=== PATIENT | female | born 1940 | race Caucasian/White ===

== ENCOUNTER 2017-10-11 06:48 | Inpatient (IN) ==
[2017-10-11] MEDS ORDERED: CeFAZolin Syr 2,000MG/20 ML 2,000 MG/20 ML SYRINGE IVPB ONE (07:06)
[2017-10-11] MEDS ORDERED: Plasma-Lyte A (PH 7.4) 1,000 ML IVC SCH (07:15)
[2017-10-11] MEDS ORDERED: Ethanol\\Acetic Acid\\Na Ace\\Ben 1,000 ML IRRIG.SOLN IR ONE (07:16)
[2017-10-11] MEDS ORDERED: Lidocaine -MPF 2% 2 ML VIAL ONE (07:24)
[2017-10-11] MEDS ORDERED: *HR* Succinylcholine 200 MG/10 ML VIAL IVP ONE (07:24)
[2017-10-11] MEDS ORDERED: *HR* Phenylephrine 10 MG/ML VIAL ONE (07:24)
--- NOTE | 2017-10-11 07:24 | History & Physical Report ---
Date of Encounter: 10/11/17 Time of Encounter: 07:24 24 Hour HP Update - Instructions Instructions: If the History and Physical is less than 30 days old and was completed prior to A.M. admission and or procedure and has NOT been updated on calendar day of procedure please complete this update prior to performing procedure. - Update Patient reports changes in Medical Condition: No Changes in examination, assessment, or condition: No Changes in Medication: No Preop tests/diagnostics Reviewed: Yes Surgery Remains Indicated: Yes Consent for Planned Operative Procedure(s) Verified: Yes - Pre-Operative Checklist Preoperative Checklist Indicated: No Prophylactic Antibiotic Ordered: Yes Is VTE Prophylaxis Indicated?: Yes
[2017-10-11] MEDS ORDERED: *HR* Propofol 200 MG/20 ML VIAL IVP ONE (07:26)
[2017-10-11] MEDS ORDERED: *HR* FentaNYL (PF) 100 MCG/2 ML VIAL ONE ×2 (07:27→10:31)
--- NOTE | 2017-10-11 07:37 | Anesthesia Evaluation PreOp ---
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 History: Denies Any Significant HX Other Medical History: Denies Any Significant HX Anesthesia History: No Prior Anesthetic Complications, Past Anesthesia (R total hip) Alcohol Use: occasionally Drug use: none Medications and Allergies Cholecalciferol (D-3) [Vitamin D] 1,000 unit PO DAILY 10/11/17 [History] Diclofenac Sodium [Voltaren] 50 mg PO BID 10/11/17 [History] Fluticasone Propionate Nasal [Flonase] 50 mcg NS 10/11/17 [History] Lisinopril-HCTZ 20-12.5 [Prinzide 20-12.5] 1 each PO 10/11/17 [History] Melatonin 1 mg PO 10/11/17 [History] Ubidecarenone [Coq10] 100 mg PO 10/11/17 [History] Vit A/Vit C/Vit E/Zinc/Copper [Preservision Areds Tablet] 1 each PO 10/11/17 [ History] 3 Allergy/AdvReac Type Severity Reaction Status Date / Time Dorzolamide [From Cosopt] Allergy See Verified 09/30/17 15:00 Comments Erythromycin Base Allergy See Verified 09/30/17 15:00 Comments timolol [From Cosopt] Allergy See Verified 09/30/17 15:00 Comments tramadol Allergy Hallucinati Verified 09/30/17 15:00 ng - Meds/Allergy Pre-op Review Medications Reviewed: Yes Allergies Reviewed: Yes Beta Blockers on Current Med List: No Anesthesia Results - Labs Laboratory Tests 09/30/17 09/30/17 09/30/17 14:07 14:07 14:07 WBC 8.0 Hgb 12.8 Hct 38.7 Plt Count 237 PT 10.9 INR 1.0 APTT 29.7 Sodium 136 Potassium Chloride 103 Carbon Dioxide 23 BUN 27 H Creatinine 0.89 10/02/17 13:44 WBC Hgb Hct Plt Count PT INR APTT Sodium Potassium 4.8 H Chloride Carbon Dioxide BUN Creatinine - Imaging EKG: report reviewed (NSR) Anesthesia Exam O2 Sat Height 1.55 m Height 1.55 m Weight 78.471 kg Weight 78.471 kg O2 Sat by Pulse Oximetry 98 Vital Signs Temp Pulse Resp BP Pulse Ox 98.2 F 83 18 152/70 98 10/11/17 07:13 10/11/17 07:13 10/11/17 07:13 10/11/17 07:13 10/11/17 07:13 Height: 1.55m Weight: 78kg NPO (# of Hours): >8 - HEENT Pupil (Motor): Pupils equal, EOMI Mallampati: II Teeth: Normal Oral Opening: Greater than 3 - DOUBLE NEEDLE OPERATOR LOCKSTITCH LOC: Oriented DOUBLE NEEDLE OPERATOR LOCKSTITCH Motor: Normal RUE, Normal LUE, Normal RLE, Normal LLE, Normal Face DOUBLE NEEDLE OPERATOR LOCKSTITCH Sensory: Normal: RUE, LUE, RLE, LLE, Face - Cardiac Rhythm: Regular - Pulmonary Breath Sounds: bilateral Clear Respiratory Effort: Symmetrical Anesthesia Assess/Plan ASA Score: 2 Modified Hartland Scale for Level of Consciousness: Cooperative, oriented, and tranquil Anesthetic Plan: General (r/b/a discussed, questions answered, consent obtained) Monitoring Plan: Standard Monitors Recovery Plan: PACU
--- NOTE | 2017-10-11 07:45 | Discharge Summary ---
Date of Encounter: 10/13/17 Time of Encounter: 06:47 - Discharge Diagnosis (1) Hypertension Priority: Secondary Status: Chronic Qualifiers: Hypertension type: unspecified Qualified Code(s): I10 - Essential (primary ) hypertension (2) Hyperlipidemia Priority: Secondary Status: Chronic Qualifiers: Hyperlipidemia type: unspecified Qualified Code(s): E78.5 - Hyperlipidemia , unspecified (3) Obesity (BMI 30.0-34.9) Priority: Secondary Status: Chronic (4) Arthritis of left hip Priority: Primary Status: Chronic (5) Status post total hip replacement, left Priority: Primary Status: Acute (6) Acute blood loss anemia Priority: Primary Status: Acute - Discharge Medications Home Medications: Aspirin Enteric Coated [Aspirin EC] 325 mg PO BID #20 tablet. 10/11/17 [Rx] Cholecalciferol (D-3) [Vitamin D] 1,000 unit PO DAILY 10/11/17 [History] Diclofenac Sodium [Voltaren] 50 mg PO BID 10/11/17 [History] Fluticasone Propionate Nasal [Flonase] 50 mcg NS DAILY 10/11/17 [History] Lisinopril-HCTZ 20-12.5 [Prinzide 20-12.5] 1 each PO DAILY 10/11/17 [History] Melatonin 1 mg PO DAILY 10/11/17 [History] OxyCODONE Immed Rel [Roxicodone 5 MG] 5 mg PO Q4HR PRN #24 tablet 10/11/17 [Rx] Ubidecarenone [Coq10] 100 mg PO DAILY 10/11/17 [History] Vit A/Vit C/Vit E/Zinc/Copper [Preservision Areds Tablet] 1 each PO DAILY [History] Latanoprost [Xalatan] 1 drop OP HS 10/12/17 [History] Allergies/Adverse Reactions: 3 Allergy/AdvReac Type Severity Reaction Status Date / Time Dorzolamide [From Cosopt] Allergy See Verified 09/30/17 15:00 Comments Erythromycin Base Allergy See Verified 09/30/17 15:00 Comments timolol [From Cosopt] Allergy See Verified 09/30/17 15:00 Comments tramadol Allergy Hallucinati Verified 09/30/17 15:00 ng Primary care physician: Shauna Hanson - Patient Status Disposition: Transfer Inpatient Rehab Fac Condition: Good Functional capacity at discharge: uses cane/walker Overall status at discharge: patient is progressing back to baseline - Discharge Instructions Follow Up With: Shauna Hanson CNP [Primary Care Provider] - - Hospital Course Hospital course: Ms. Calix is a 76 year old female Status post left total hip replacement. The patient had an uneventful postoperative course. They received antibiotics and physical therapy and were discharged in stable condition. There will follow -up in the office in 2 weeks. - Time Spent with Patient Total time spent providing and/or coordinating discharge services:
[2017-10-11] MEDS ORDERED: Ondansetron 4 MG/2 ML VIAL IVP ONE (08:33)
[2017-10-11] MEDS ORDERED: *HR* Labetalol 20 MG/4 ML SYRINGE IVP PRN (08:33)
[2017-10-11] MEDS ORDERED: *HR* HYDROmorphone (PF) 1 MG/ML SYRINGE IVP PRN ×2 (08:33→12:06)
[2017-10-11] MEDS ORDERED: EPHEDrine 50 MG/ML VIAL ONE (09:53)
[2017-10-11] MEDS ORDERED: *HR* Morphine 10 MG/ML VIAL ONE (10:31)
[2017-10-11] MEDS ORDERED: Ondansetron 4 MG/2 ML VIAL ONE (10:50)
--- NOTE | 2017-10-11 11:00 | Orthopedic Operative Note ---
Date of procedure: 10/11/17 Pre-op diagnosis: Left hip arthritis Procedure: Procedure: Left Total Hip Replacment robotic-assisted Estimated blood loss: 500 cc Hardware: Metal and polyethylene replacement. Fabiola DM Cup: 52 cup Femoral size stem 10 Head:0 head with Bea Procedural Notes: Grade 4 arthritic changes femoral head acetabular socket, procedure performed with robotic assistance. Operative procedure: The patient was brought to the operating room and placed on the operating room table. After general anesthesia was administered the patient was placed in the lateral decubitus position with the operative leg up. All pressure points were padded appropriately and the head was stabilized in the neutral position. The operative extremity was prepped and draped in the sterile surgical fashion patient received IV antibiotic prior to skin incision. 3 Steinmann pins were placed in the iliac crest 3 cm proximal to the anterior superior iliac spine this was for the robotic-assisted sensor. This was done through a small 2 cm incision. A standard posterior approach is made to the operative hip, the incision was made through the skin and subcutaneous tissue hemostasis was obtained with Bovie cautery. Using careful sharp dissection the fascia was identified and incised exposing the external rotators. The femoral checkpoint was placed leg length was measured at this time utilizing robotic assistance. 1 mm short on operative side The external rotators were released off the greater trochanter and tagged with #2 FiberWire suture. The capsule was T'd open and the hip was brought into internal rotation. Patient noted to have grade 4 arthritic changes femoral head. The femoral neck cut was made at the appropriate level roughly 5 mm proximal to the lesser trochanter aced on preoperative templating. An anterior capsulotomy was performed for the anterior retractor. Soft tissues removed from the acetabulum. Patient noted to have grade 4 arthritic changes acetabulum. The acetabulum checkpoint was placed confirmed. The acetabulum was then mapped with robotic assistance. Based on the preoperative plan the acetabulum was reamed in one step with a 51 reamer. The 52 acetabulum was impacted with robotic assistance and 40 degrees of abduction and 11 degrees of anteversion. The hip was brought back in to internal rotation and prepared with the cook box filler followed by the canal finder followed by the reaming process to a size 10 broaching process in 20 degrees anteversion. It was broached up to the appropriate size 10. Trial reduction revealed leg lengths close to normal. The femoral implant was impacted in place in 20 degrees of anteversion. Trial reduction found the hip to be stable with 0 head and Bea. The trials were removed and the real implants were impacted in place. The hip was reduced, patient had robotic confirmed leg length of same as the contralateral side. The hip had excellent stability with forward flexion to 90 degrees adduction of 30 degrees and internal rotation of 60 degrees. The hip had no shuck. The hips after 2 minutes with a Betadine saline solution. It was irrigated out with 2 L of pulse irrigation. The checkpoints were removed, Steinmann pins were removed. The deep tissue was irrigated and closed deep with #1 PDS suture superficially with 0 PDS suture and skin was closed with Dermabond and zip tie. The patient was placed in a sterile dressing and abduction pillow. The patient was extubated and transferred to the recovery room in stable condition. Anesthesia: GETA Surgeon: Bruce Jacobs Condition: stable Disposition: PACU
[2017-10-11] MEDS ORDERED: Ringers Solution, Lactated 1,000 ML ONE (11:14)
[2017-10-11 11:45] LABS: Hematocrit 33.2 % (35.3-44.9)
[2017-10-11] MEDS ORDERED: *HR* OxyCODONE Immed Rel 5 MG TABLET PO PRN (12:06)
[2017-10-11] MEDS ORDERED: Ringers Solution, Lactated 1,000 ML IVC SCH (12:06)
[2017-10-11] MEDS ORDERED: Naloxone 0.4 MG/ML INJ IVP PRN (12:06)
[2017-10-11] MEDS ORDERED: CeFAZolin Premix DUPLEX 2,000 MG/50 ML BAG IVPB SCH (12:06)
--- NOTE | 2017-10-11 12:07 | Anesthesia Evaluation Post Op ---
Date of Encounter: 10/11/17 Time of Encounter: 11:57 - Vital Signs Vital Signs: vss - Lungs Lungs: Clear Ascult./Percussion - Airway Airway: Non-obstructed - Cardiovascular Baseline Rhythm - Mental Status Mental Status: Alert & Oriented, Answers Appropriately - Pain Pain Scale used: Yvonne (Faces) - Nausea Vomiting Nausea Vomiting: Not Present - Hydration Hydration: Ice chips - Discharge PostOp Status: Transfer Patient to floor
[2017-10-11] MEDS ORDERED: 0.9 % Sodium Chloride 1,000 ML ONE (12:37)
[2017-10-11] MEDS: Ondansetron 4 MG/2 ML VIAL IVP PRN ×2 (12:55→18:31)
[2017-10-11] MEDS: Lisinopril-HCTZ 20-12.5mg TABLET PO SCH (14:51)
[2017-10-11] MEDS: Ascorbic Acid 500 MG TABLET PO SCH ×2 (14:52→16:24)
[2017-10-11] MEDS: Multivit/Ca/Min/Fe/FA 1 TAB TABLET PO SCH (14:52)
[2017-10-11] MEDS: Cholecalciferol (D-3) 1,000 UNIT TABLET PO SCH (14:52)
[2017-10-11] MEDS: *HR* OxyCODONE Immed Rel 5 MG TABLET PO PRN ×2 (15:01→22:48)
[2017-10-11] MEDS: *HR* Enoxaparin 30 MG/0.3 ML SYRINGE SQ SCH (16:24)
[2017-10-11] MEDS: CeFAZolin Premix DUPLEX 2,000 MG/50 ML BAG IVPB SCH (17:59)
[2017-10-11] MEDS ORDERED: *HR* Enoxaparin 30 MG/0.3 ML SYRINGE SQ SCH (18:00)
[2017-10-11 18:42] LABS: Hematocrit 30.7 % (35.3-44.9)
[2017-10-11] MEDS ORDERED: MOM Conc 10 ML UD.LIQ PO PRN (21:00)
[2017-10-11] MEDS ORDERED: Sennosides 8.6 MG TABLET PO PRN (21:00)
[2017-10-11] MEDS ORDERED: Temazepam 15 MG CAPSULE PO PRN (21:00)
[2017-10-12] MEDS: CeFAZolin Premix DUPLEX 2,000 MG/50 ML BAG IVPB SCH (00:08)
[2017-10-12] MEDS: *HR* OxyCODONE Immed Rel 5 MG TABLET PO PRN ×3 (02:49→14:17)
[2017-10-12] MEDS: Ondansetron 4 MG/2 ML VIAL IVP PRN (03:00)
[2017-10-12] MEDS: *HR* Enoxaparin 30 MG/0.3 ML SYRINGE SQ SCH ×2 (06:26→17:56)
[2017-10-12 07:19] LABS: Hematocrit 31.1 % (35.3-44.9); Hemoglobin 9.6 g/dL (11.5-15.4)
[2017-10-12 07:21] LABS: BUN/Creatinine Ratio 35 (6-26); Blood Urea Nitrogen 23 mg/dL (7-20); Calcium 8.7 mg/dL (8.6-10.8); Carbon Dioxide 20 mEq/L (19-29); Chloride 105 mEq/L (98-109); Glucose 116 mg/dL (70-99); Osmolality,Calculated 289 (280-300); Potassium 3.9 mEq/L (3.5-4.5); Sodium 137 mEq/L (136-145); eGFR For African Americans > 60 (> 60); eGFR For Non-African Americans > 60 (> 60)
[2017-10-12] MEDS: Cholecalciferol (D-3) 1,000 UNIT TABLET PO SCH (10:25)
[2017-10-12] MEDS: Lisinopril-HCTZ 20-12.5mg TABLET PO SCH (10:25)
[2017-10-12] MEDS: Multivit/Ca/Min/Fe/FA 1 TAB TABLET PO SCH (10:25)
[2017-10-12] MEDS: Ascorbic Acid 500 MG TABLET PO SCH ×2 (10:25→17:56)
--- NOTE | 2017-10-12 14:22 | Orthopedics Progress Note ---
Date of Encounter: 10/12/17 Time of Encounter: 14:21 Subjective Principal diagnosis: Left hip arthritis Interval history: Patient's comfortable Left hip dressings are clean dry and intact Bilateral calves are soft nontender, neurovascular intact distally Postoperative day #1 status post left total hip arthroplasty, stable Plan: Continue DVT prophylaxis Continue OT/PT Objective Vital signs: Vital Signs Temp Pulse Resp BP Pulse Ox 10/12/17 10:30 98.3 F 89 16 125/46 93 10/12/17 06:39 98 F 86 18 127/68 99 10/12/17 03:38 97.8 F 77 18 123/63 97 10/12/17 00:44 97.7 F 80 18 118/60 97 10/11/17 20:19 97.8 F 82 18 120/63 97 10/11/17 16:01 115/60 10/11/17 14:58 97.6 F 80 18 113/62 96 Intake and Output 10/11/17 10/12/17 10/12/17 23:59 07:59 15:59 Intake Total 850 / 850 250 / 250 Output Total 600 / 600 400 / 400 175 / 175 Balance 250 / 250 -400 / -400 75 / 75 Intake: IV Fluids 50 / 50 Ancef Premix DUPLEX 2,000 mg In 50 / 50 50 ml @ 100 mls/hr IVPB Q8HR [facility] Rx#:[id number] Oral 800 / 800 250 / 250 Output: Urine 400 / 400 400 / 400 175 / 175 Emesis 200 / 200 - Labs CBC & BMP: 10/12/17 06:12 10/12/17 06:12 Labs: Abnormal lab results Hgb 9.6 g/dL (11.5-15.4) L 10/12/17 06:12 Hct 31.1 % (35.3-44.9) L 10/12/17 06:12 BUN 23 mg/dL (7-20) H 10/12/17 06:12 BUN/Creatinine Ratio 35 (6-26) H 10/12/17 06:12 Glucose 116 mg/dL (70-99) H 10/12/17 06:12 - VTE Documentation of Mechanical Device: Venous foot pump, device Consult Discharge Plan - Plan Referrals: Shauna Hanson, [facility] [Primary Care Provider] -
[2017-10-12] MEDS ORDERED: 0.9 % Sodium Chloride 250 ML ONE (22:26)
[2017-10-13] MEDS: *HR* Enoxaparin 30 MG/0.3 ML SYRINGE SQ SCH ×2 (05:21→17:56)
--- NOTE | 2017-10-13 06:48 | Orthopedics Progress Note ---
Date of Encounter: 10/13/17 Time of Encounter: 06:48 - Assessment and Plan (1) Hypertension Current Visit: Yes Status: Chronic Qualifiers: Hypertension type: unspecified Qualified Code(s): I10 - Essential (primary ) hypertension (2) Hyperlipidemia Current Visit: Yes Status: Chronic Qualifiers: Hyperlipidemia type: unspecified Qualified Code(s): E78.5 - Hyperlipidemia , unspecified (3) Obesity (BMI 30.0-34.9) Current Visit: Yes Status: Chronic (4) Arthritis of left hip Current Visit: Yes Status: Chronic (5) Status post total hip replacement, left Current Visit: Yes Status: Acute (6) Acute blood loss anemia Current Visit: Yes Status: Acute Subjective Principal diagnosis: Left hip arthritis Interval history: Patient was seen this morning doing well without complaints. Afebrile vital signs stable. Operative extremity: Neurovascularly intact Dressing clean dry and intact Calves nontender Assessment and plan: Continue with postoperative care Hematocrit 31 Objective Vital signs: Vital Signs Temp Pulse Resp BP Pulse Ox 10/13/17 03:47 98.2 F 78 16 123/75 98 10/13/17 02:00 99.3 F 93 20 127/80 93 10/12/17 23:29 99.6 F 96 18 148/66 95 10/12/17 23:14 99.3 F 95 20 66/44 95 10/12/17 23:09 99.3 F 95 20 66/44 95 10/12/17 14:08 98.5 F 93 16 128/56 95 10/12/17 10:30 98.3 F 89 16 125/46 93 Intake and Output 10/12/17 10/12/17 10/13/17 15:59 23:59 07:59 Intake Total 250 / 250 800 / 800 889 / 889 Output Total 175 / 175 650 / 650 400 / 400 Balance 75 / 75 150 / 150 489 / 489 Intake: Oral 250 / 250 800 / 800 600 / 600 Blood Product 0 / 0 289 / 289 Rbcs Leuko Poor As-1 Unit 0 / 0 289 / 289 [id number] Output: Urine 175 / 175 650 / 650 400 / 400 Other: Meal Dinner Percent of Meal Consumed 100% - Labs CBC & BMP: 10/12/17 06:12 10/12/17 06:12 Labs: Abnormal lab results Hgb 9.6 g/dL (11.5-15.4) L 10/12/17 06:12 Hct 31.1 % (35.3-44.9) L 10/12/17 06:12 BUN 23 mg/dL (7-20) H 10/12/17 06:12 BUN/Creatinine Ratio 35 (6-26) H 10/12/17 06:12 Glucose 116 mg/dL (70-99) H 10/12/17 06:12 - VTE Documentation of Mechanical Device: Venous foot pump, device Consult Discharge Plan - Plan Referrals: Shauna Hanson, [employer] [Primary Care Provider] -
[2017-10-13 06:54] LABS: Hematocrit 27.3 % (35.3-44.9); Hemoglobin 8.9 g/dL (11.5-15.4)
[2017-10-13 07:09] LABS: BUN/Creatinine Ratio 29 (6-26); Blood Urea Nitrogen 17 mg/dL (7-20); Calcium 8.6 mg/dL (8.6-10.8); Carbon Dioxide 27 mEq/L (19-29); Chloride 103 mEq/L (98-109); Glucose 113 mg/dL (70-99); Osmolality,Calculated 284 (280-300); Potassium 3.7 mEq/L (3.5-4.5); Sodium 136 mEq/L (136-145); eGFR For African Americans > 60 (> 60); eGFR For Non-African Americans > 60 (> 60)
[2017-10-13] MEDS: Lisinopril-HCTZ 20-12.5mg TABLET PO SCH (08:54)
[2017-10-13] MEDS: Cholecalciferol (D-3) 1,000 UNIT TABLET PO SCH (08:55)
[2017-10-13] MEDS: Ascorbic Acid 500 MG TABLET PO SCH ×2 (08:55→17:56)
[2017-10-13] MEDS: Multivit/Ca/Min/Fe/FA 1 TAB TABLET PO SCH (08:55)
--- NOTE | 2017-10-13 12:02 | Physician Discharge Referral ---
ExtendedCare Referral Info Transfer To: [facility] Provider in Charge: Dr Bruce Jacobs - Diagnosis (1) Hypertension Priority: Secondary Status: Chronic (2) Hyperlipidemia Priority: Secondary Status: Chronic (3) Obesity (BMI 30.0-34.9) Priority: Secondary Status: Chronic (4) Arthritis of left hip Priority: Primary Status: Chronic (5) Status post total hip replacement, left Priority: Primary Status: Acute Expected Duration of Placement: less than 30 days Prognosis: Good Aware of Diagnosis: Patient Aware of Prognosis: Patient - Transfer Medications Home Medications: Aspirin Enteric Coated [Aspirin EC] 325 mg PO BID #20 tablet. 10/11/17 [Rx] Cholecalciferol (D-3) [Vitamin D] 1,000 unit PO DAILY 10/11/17 [History] Diclofenac Sodium [Voltaren] 50 mg PO BID 10/11/17 [History] Fluticasone Propionate Nasal [Flonase] 50 mcg NS DAILY 10/11/17 [History] Lisinopril-HCTZ 20-12.5 [Prinzide 20-12.5] 1 each PO DAILY 10/11/17 [History] Melatonin 1 mg PO DAILY 10/11/17 [History] OxyCODONE Immed Rel [Roxicodone 5 MG] 5 mg PO Q4HR PRN #24 tablet 10/11/17 [Rx] Ubidecarenone [Coq10] 100 mg PO DAILY 10/11/17 [History] Vit A/Vit C/Vit E/Zinc/Copper [Preservision Areds Tablet] 1 each PO DAILY [History] Latanoprost [Xalatan] 1 drop OP HS 10/12/17 [History] Allergies/Adverse Reactions: 3 Allergy/AdvReac Type Severity Reaction Status Date / Time Dorzolamide [From Cosopt] Allergy See Verified 09/30/17 15:00 Comments Erythromycin Base Allergy See Verified 09/30/17 15:00 Comments timolol [From Cosopt] Allergy See Verified 09/30/17 15:00 Comments tramadol Allergy Hallucinati Verified 09/30/17 15:00 ng - Respiratory Orders Smoking Cessation: Smoking cessation has been advised. For more information, call the [place] Tobacco Quit Line at 0-384-VDIM-NOW. - Ancillary Orders May use pressure relief devices daily prn, May go on HANSA w/family/respon democrat w /meds at nurse discretion PRN, May consult with Dentist, Manager Animation, Tape Control Skin Or Spar Mill Operator PRN - Mobility Orders Chair, Ambulate - Rehabiliation Orders Rehab Potential: Good Rehab Orders: Evaluation for Physical Therapy, Evaluation for Occupational Therapy - Treatments Skin tear care topically daily PRN per policy List/Other: Total Hip replacement Precautions Apply cold therapy 3-6x/day for 20 minutes at a time. Encourage ambulation throughout the day and incentive spirometer 10x/hour. Elevate affected extremity as tolerated. Brace: Wear hip abduction pillow when laying/sleeping - Diet Orders Regular CERTIFICATION: I certify that the transfer of the above named patient to an Extended Care Facility is necessary for the continuing treatment of the diagnosis listed. The above information is true and accurate reflection of patient's current condition. Confidential - Redisclosure prohibited without a patient's written consent.
[2017-10-13] MEDS: *HR* OxyCODONE Immed Rel 5 MG TABLET PO PRN (17:59)
[2017-10-14] MEDS: *HR* Enoxaparin 30 MG/0.3 ML SYRINGE SQ SCH (05:36)
--- NOTE | 2017-10-14 06:46 | Orthopedics Progress Note ---
Date of Encounter: 10/14/17 Time of Encounter: 06:46 - Assessment and Plan (1) Hypertension Current Visit: Yes Status: Chronic Qualifiers: Hypertension type: unspecified Qualified Code(s): I10 - Essential (primary ) hypertension (2) Hyperlipidemia Current Visit: Yes Status: Chronic Qualifiers: Hyperlipidemia type: unspecified Qualified Code(s): E78.5 - Hyperlipidemia , unspecified (3) Obesity (BMI 30.0-34.9) Current Visit: Yes Status: Chronic (4) Arthritis of left hip Current Visit: Yes Status: Chronic (5) Status post total hip replacement, left Current Visit: Yes Status: Acute (6) Acute blood loss anemia Current Visit: Yes Status: Acute Subjective Principal diagnosis: Left hip arthritis Interval history: Patient was seen this morning doing well without complaints. Afebrile vital signs stable. Operative extremity: Neurovascularly intact Dressing clean dry and intact Calves nontender Assessment and plan: Continue with postoperative care Discharged today Objective Vital signs: Vital Signs Temp Pulse Resp BP Pulse Ox 10/14/17 04:35 99.2 F 79 15 127/75 94 10/14/17 03:14 99.2 F 91 16 125/74 95 10/13/17 19:48 99.2 F 91 17 125/74 97 10/13/17 15:48 98.6 F 91 16 118/52 97 10/13/17 11:42 98.5 F 86 17 127/68 92 10/13/17 07:02 98.3 F 93 16 137/57 92 Intake and Output 10/13/17 10/13/17 10/14/17 15:59 23:59 07:59 Intake Total 240 / 240 100 / 100 Output Total 1100 / 1100 500 / 500 Balance 240 / 240 -1000 / -1000 -500 / -500 Intake: Oral 240 / 240 100 / 100 Output: Urine 1100 / 1100 500 / 500 Other: Meal Breakfast Percent of Meal Consumed 50% - Labs CBC & BMP: 10/13/17 06:03 10/13/17 06:03 Labs: Abnormal lab results Hgb 8.9 g/dL (11.5-15.4) L 10/13/17 06:03 Hct 27.3 % (35.3-44.9) L 10/13/17 06:03 BUN/Creatinine Ratio 29 (6-26) H 10/13/17 06:03 Glucose 113 mg/dL (70-99) H 10/13/17 06:03 - VTE Documentation of Mechanical Device: Venous foot pump, device Consult Discharge Plan - Plan Referrals: Shauna Hanson, [facility] [Primary Care Provider] -
[2017-10-14 07:19] VITALS: BP 131/75
[2017-10-14] MEDS ORDERED: Acetaminophen 325 MG TABLET PO PRN (07:43)
[2017-10-14] MEDS: Multivit/Ca/Min/Fe/FA 1 TAB TABLET PO SCH (08:06)
[2017-10-14] MEDS: Cholecalciferol (D-3) 1,000 UNIT TABLET PO SCH (08:06)
[2017-10-14] MEDS: Lisinopril-HCTZ 20-12.5mg TABLET PO SCH (08:06)
[2017-10-14] MEDS: Ascorbic Acid 500 MG TABLET PO SCH (08:06)
== END 2017-10-14 09:32 | disposition other institution (70) | DRG 470 ==
LOC: SAMDAY 06:48 → EDUNIT# 12:00 → 3NENU 12:02
PROVIDERS: ADMIT Orthopaedic Surgery; ATTEND Orthopaedic Surgery

== ENCOUNTER 2018-05-24 20:57 | Inpatient (IN) ==
--- NOTE | 2018-05-25 01:53 | Internal Med History&Physical ---
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 Patient was initially scheduled for left knee replacement today with Dr. Jacobs. Patient reports history of osteoarthritis and difficulty ambulating secondary to pain and difficulty with balance. She reports tripping and falling while getting out of her car in the [employer] parking lot. She was evaluated at [facility] and placed in a right upper extremity splint prior to transfer. Pain is worse with right right upper extremity range of motion. Patient reports pain level is well-controlled status post morphine IV. She denies any loss of consciousness, head trauma, neck trauma, rib fractures, difficulty breathing, chest pain, fevers, chills, abdominal pain, nausea, vomiting, diarrhea, constipation, dysuria, or leg edema. Past Med Surg Social Fam HX - Past Medical History Medical history: hyperlipidemia, hypertension Additional medical history: seasonal allergies. Cataracts. 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) Current living situation: Home - Independent Activity Level: Independent ambulation Recent Out of Country Travel Within the Last 8 Weeks: No Exposure or Possible Exposure to Illness During Travel: No - Family History Mother Living Status: Age at : 72 Cause of : copd Hx Family Respiratory Disorders: Yes (COPD) Hx Family Cancer: Yes (brain cancer) Father Living Status: Age at : 74 Cause of : unknown Hx Family Respiratory Disorders: Yes (COPD) Hx Family Endocrine Disorder: Yes (pancreatitis, diabetes) Internal Medicine - H&P: Meds RX: Cholecalciferol (D-3) [Vitamin D] 10,000 unit PO WE 10/11/17 [History] RX: Fluticasone Propionate Nasal [Flonase] 50 mcg NS PRN PRN MDD DAILY 10/11/17 [History] RX: Lisinopril-HCTZ 20-12.5 [Prinzide 20-12.5] 1 each PO DAILY 10/11/17 [History ] RX: Ubidecarenone [Coq10] 100 mg PO DAILY 10/11/17 [History] RX: Vit A/Vit C/Vit E/Zinc/Copper [Preservision Areds Tablet] 1 each PO BID [History] RX: Latanoprost [Xalatan] 1 drop OP HS 10/12/17 [History] 3 Allergy/AdvReac Type Severity Reaction Status Date / Time Dorzolamide [From Cosopt] Allergy See Verified 05/08/18 11:19 Comments Erythromycin Base Allergy See Verified 05/08/18 11:19 Comments timolol [From Cosopt] Allergy See Verified 05/08/18 11:19 Comments tramadol Allergy Hallucinati Verified 05/08/18 11:19 ng All Systems PM: A 10-system review of systems was performed and is negative for pertinent findings except as documented above in the HPI. - Constitutional Constitutional: falls, weakness, no anorexia, no chills, no fatigue, no fever(s) , no malaise, no weight gain, no weight loss - EENT Eyes: no blurry vision, no diplopia Nose, mouth and throat: no sinus pain, no sore throat - Cardiovascular Cardiovascular ROS IM: no chest pain, no dyspnea, no dyspnea on exertion, no edema, no lightheadedness, no orthopnea, no syncope - Respiratory Respiratory: no cough, no dyspnea on exertion - Gastrointestinal Gastrointestinal: no abdominal pain, no constipation, no diarrhea, no heartburn , no nausea, no vomiting - Genitourinary Genitourinary: urinary incontinence (Chronic), no dysuria, no hematuria, no urinary frequency, no urinary urgency Menstruation: post menopausal - Musculoskeletal Musculoskeletal ROS IM: as per HPI, arthralgias, deformity, joint swelling, limited range of motion, myalgias, no back pain, no neck pain, no numbness, no tingling - Integumentary Integumentary IM: erythema, new lesions, no rash, no skin ulcer - Neurological Neurological ROS: abnormal gait, frequent falls, no dizziness, no focal weakness , no numbness, no paresthesias, no tingling, no weakness - Psychiatric Psychiatric: no anxiety, no depression - Endocrine Endocrine IM: no fatigue, no polydipsia, no polyphagia, no polyuria - Constitutional Vitals: Temp Pulse Resp BP Pulse Ox 98.6 F 88 16 119/81 96 05/24/18 23:54 05/24/18 23:54 05/24/18 23:54 05/24/18 23:54 05/24/18 23:54 General appearance: Present: cooperative, mild distress, A&O X 3, pleasant, answers questions appropriately - Head Head exam: Present: atraumatic, normocephalic - Eye Eye exam: Present: EOMI, conjuntiva pink, sclera anicteric - ENT ENT exam: Present: mucous membranes dry, normal oropharynx - Neck Neck exam general surgery: Present: normal inspection, supple, trachea midline. Absent: lymphadenopathy, tenderness, nuchal rigidity - Respiratory Respiratory exam: Present: CTAB. Absent: accessory muscle use, rales, respiratory distress, rhonchi, wheezes - Cardiovascular Cardiovascular exam: Present: RRR, +S1, +S2. Absent: diastolic murmur, gallop, rubs, systolic murmur - GI/Abdominal GI/Abdominal exam: Present: normal bowel sounds, soft, no peritoneal signs. Absent: distended, guarding, tenderness - Extremities Exam Extremities exam: Present: warm, radial pulses palpable and symmetrical. Absent : calf tenderness, cyanotic, normal inspection (Right upper extremity immobilized, splint in place, intact distal pulses), pedal edema - Back Exam Back exam: Present: normal inspection. Absent: paraspinal tenderness, tenderness - Neurological Exam Neurological exam: Present: alert, CN II-XII intact, oriented X3, no focal deficits. Absent: pronater drift, facial droop, speech deficit - Psychiatric Psychiatric exam: Present: normal affect, normal mood - Skin Skin exam: Present: dry, intact, normal color, warm Internal Med - H&P Results - Labs Labs: Labs at [facility] 05/24/18: WBC 13.3, Hemoglobin 12.9, hematocrit 38.5, platelet count 287, sodium 135, potassium 3.9, chloride 100, CO2 24, BUN 23, creatinine 0.72, glucose 118, calcium 9.7, albumin 4.2, INR 1.0, UA negative - Pulse Oximetry Interpretation Digit-Finger O2 Sat by Pulse Oximetry: 96 (On rom air) - Impressions Right elbow x-ray revealed comminuted, displaced fracture of olecranon process with surrounding soft tissue swelling - Assessment and plan (1) Fall Current Visit: Yes Status: Acute Assessment and plan: Patient sustained right elbow fracture status post mechanical fall No loss of consciousness or head/neck trauma Continue fall precautions PT/OT consulted Qualifiers: Encounter type: initial encounter Qualified Code(s): W19.XXXA - Unspecified fall, initial encounter (2) Osteoarthritis of left knee Current Visit: Yes Status: Chronic Assessment and plan: Patient was initially scheduled for left knee replacement 05/25/[address] Jacobs. Patient reports history of osteoarthritis and difficulty ambulating secondary to pain and difficulty with balance. Orthopedics consulted Qualifiers: Osteoarthritis type: unspecified Qualified Code(s): M17.12 - Unilateral primary osteoarthritis, left knee (3) Hypertension Current Visit: Yes Status: Chronic Assessment and plan: Continue home meds Qualifiers: Hypertension type: unspecified Qualified Code(s): I10 - Essential (primary ) hypertension (4) Hyperlipidemia Current Visit: No Status: Chronic Assessment and plan: Continue home meds Qualifiers: Hyperlipidemia type: unspecified Qualified Code(s): E78.5 - Hyperlipidemia , unspecified (5) Obesity (BMI 30.0-34.9) Current Visit: Yes Status: Chronic Assessment and plan: Lifestyle modification (6) DVT prophylaxis Current Visit: Yes Status: Acute Assessment and plan: SCDs (7) Fracture of olecranon process of right ulna Current Visit: Yes Status: Acute Assessment and plan: Patient sustained right elbow fracture status post fall prior to arrival She was evaluated at [facility] and placed in a right upper extremity splint prior to transfer. Right elbow x-ray revealed comminuted, displaced fracture of olecranon process with surrounding soft tissue swelling (images uploaded to PACS) Continue pain control Nothing by mouth after midnight Orthopedics consulted Qualifiers: Encounter type: initial encounter Fracture type: closed Qualified Code(s) : S52.021A - Displaced fracture of olecranon process without intraarticular extension of right ulna, initial encounter for closed fracture - Time Spent With Patient Total time spent is greater than 50% in coordination of care (as documented) at patient's floor/unit and/or counseling patient: <Ismael Gottlieb P - Last Filed: 05/25/18 07:23> Date of Encounter: 05/25/18 Internal Medicine - H&P: HPI History of present illness: Ms. Calix is a 77 year old female All Systems PM: A 10-system review of systems was performed and is negative for pertinent findings except as documented above in the HPI. - Constitutional Vitals: Temp Pulse Resp BP Pulse Ox 98.6 F 91 18 126/80 97 05/25/18 06:57 05/25/18 06:57 05/25/18 06:57 05/25/18 06:57 05/25/18 06:57 Internal Med - H&P Results - Labs CBC & Chem 7: 05/25/18 03:19 05/25/18 03:19 Labs: Short CBC 05/25/18 Range/Units 03:19 WBC 10.5 (4.3-11.1) K/mcL Hgb 12.4 (11.5-15.4) g/dL Hct 36.8 (35.3-44.9) % Plt Count 275 (140-400) K/mcL Neutrophils # 7.3 (1.6-8.9) K/mcL BMP 05/25/18 03:19 Sodium 134 L Potassium 4.1 Chloride 102 Carbon Dioxide 25 BUN 20 Creatinine 0.63 Glucose 140 H Calcium 9.4 - Attending Attestation I have seen the patient and performed my own history and physical examination. I have discussed the case with the admitting resident physician, and I agree with his assessment and plan of care as documented in his H&P. Briefly, patient admitted for right elbow fracture and left knee osteoarthritis. She was scheduled to have left knee replacement here by orthopedics Dr. Jacobs. Patient transferred from [facility] due to not having orthopedic surgery. She had right elbow splints prior to transfer. We will admit as inpatient. NPO and hold anticoagulation in anticipation of surgery. Consult orthopedic surgery in AM. Will consult PT/OT for falls. Pain control with SL oxycodone. Repeat labwork in AM. - Assessment and plan (1) Hypertension Current Visit: Yes Status: Chronic Qualifiers: Hypertension type: unspecified Qualified Code(s): I10 - Essential (primary ) hypertension (2) Hyperlipidemia Current Visit: No Status: Chronic Qualifiers: Hyperlipidemia type: unspecified Qualified Code(s): E78.5 - Hyperlipidemia , unspecified (3) Obesity (BMI 30.0-34.9) Current Visit: Yes Status: Chronic (4) Osteoarthritis of left knee Current Visit: Yes Status: Chronic Qualifiers: Osteoarthritis type: unspecified Qualified Code(s): M17.12 - Unilateral primary osteoarthritis, left knee (5) Fall Current Visit: Yes Status: Acute Qualifiers: Encounter type: initial encounter Qualified Code(s): W19.XXXA - Unspecified fall, initial encounter (6) DVT prophylaxis Current Visit: Yes Status: Acute (7) Fracture of olecranon process of right ulna Current Visit: Yes Status: Acute Qualifiers: Encounter type: initial encounter Fracture type: closed Qualified Code(s) : S52.021A - Displaced fracture of olecranon process without intraarticular extension of right ulna, initial encounter for closed fracture - Time Spent With Patient Total time spent is greater than 50% in coordination of care (as documented) at patient's floor/unit and/or counseling patient:
[2018-05-25] MEDS ORDERED: Ondansetron 4 MG/2 ML VIAL IVP PRN ×2 (02:41→16:32)
[2018-05-25] MEDS ORDERED: Ketorolac 15 MG/ML VIAL IVP PRN ×2 (02:41→16:32)
[2018-05-25] MEDS ORDERED: Naloxone 0.4 MG/ML INJ IVP PRN ×2 (02:41→16:32)
[2018-05-25] MEDS ORDERED: Acetaminophen 325 MG TABLET PO PRN ×2 (02:41→16:32)
[2018-05-25] MEDS ORDERED: 0.9 % Sodium Chloride 1,000 ML IVC SCH (02:45)
[2018-05-25] MEDS ORDERED: Fluticasone Propionate Nasal 50 MCG/SPRAY BOTTLE NS PRN ×2 (02:47→16:32)
[2018-05-25] MEDS ORDERED: Latanoprost 2.5 ML BOTTLE BOTH EYES SCH (03:00)
[2018-05-25] MEDS: OXYCODONE Oral CONC 10 MG/0.5 ML ORAL.SYG SL PRN ×2 (03:19→07:29)
[2018-05-25 03:39] LABS: Basophils % 0.3 %; Eosinophils # 0.1 K/mcL (0.0-0.6); Eosinophils % 0.6 %; Hematocrit 36.8 % (35.3-44.9); Hemoglobin 12.4 g/dL (11.5-15.4); Immature Granulocytes % 0.4 % (0-4); Lymphocytes # 2.2 K/mcL (0.6-4.6); Mean Corpuscular HGB Conc 33.7 g/dL (31.6-35.5); Mean Corpuscular Hemoglobin 32.5 pg (28.0-33.3); Mean Corpuscular Volume 96.3 fL (83.0-100.0); Mean Platelet Volume 10.2 fL (9.4-12.4); Monocytes # 0.8 K/mcL (0.0-1.3); Neutrophils # 7.3 K/mcL (1.6-8.9); Platelet Count 275 K/mcL (140-400); Red Blood Count 3.82 M/mcL (3.82-4.97); Segmented Neutrophils % 69.7 %
[2018-05-25 03:46] LABS: Prothrombin Time 11.5 Seconds (9.4-12.1)
[2018-05-25 03:58] LABS: BUN/Creatinine Ratio 32 (6-26); Blood Urea Nitrogen 20 mg/dL (8-23); Calcium 9.4 mg/dL (8.6-10.3); Carbon Dioxide 25 mEq/L (23-29); Chloride 102 mEq/L (98-107); Glucose 140 mg/dL (70-105); Osmolality,Calculated 283 (280-300); Potassium 4.1 mEq/L (3.5-5.1); Sodium 134 mEq/L (136-145); eGFR For Non-African Americans > 60 (> 60)
[2018-05-25] MEDS ORDERED: Pantoprazole 40 MG VIAL IVP SCH (06:30)
[2018-05-25] MEDS ORDERED: Lisinopril-HCTZ 20-12.5mg TABLET PO SCH (09:00)
[2018-05-25] MEDS ORDERED: Multivit/Ca/Min/Fe/FA 1 TAB TABLET PO SCH (09:00)
[2018-05-25] MEDS ORDERED: COQ10 100 MG PO SCH (09:00)
--- NOTE | 2018-05-25 10:42 | Orthopedic Consult Note ---
Date of Encounter: 05/25/18 Time of Encounter: 10:39 Assessment and Plan (1) Fracture of olecranon process of right ulna Current Visit: Yes Status: Acute I did discuss the diagnosis in detail she has a right displaced olecranon fracture. Treatment options were discussed and given the patient's activity level as well as size and displacement of the fracture my recommendation was for open reduction and internal fixation of the right olecranon. The risks discussed included but were not limited to stiffness, bleeding, infection, blood clots, damage to neurovascular structures, tendons, ligaments, and bone. Also discussed was the risk of continued symptoms and possible need for further procedures. I did discuss the anesthesia risks including stroke, heart attack, and . I did discuss the reasonable, foreseeable postoperative course with the patient. She is aware of the risk of re-displacement, particularly with her osteopenia. She did wish to proceed and consent was obtained. Qualifiers: Encounter type: initial encounter Fracture type: closed Qualified Code(s) : S52.021A - Displaced fracture of olecranon process without intraarticular extension of right ulna, initial encounter for closed fracture History of Present Illness HPI: Ms. Calix is a 77 year old female. She lives independently and was actually scheduled for an elective total knee arthroplasty today. Instead, she had a fall yesterday which is non-syncopal in nature and landed directly on her right elbow. She had a comminuted olecranon fracture and was admitted to the hospitalist for definitive management. On my evaluation the patient complains of isolated pain localized to the right olecranon which is sharp and achy in nature, worse with movement and better with rest. No associated numbness, tingling, or other signs or symptoms or modifying factors. She denies any headaches, neck pain, chest pain, abdominal pain, left upper extremity pain, and bilateral lower extremity pain. Past Med Surg Social Fam HX - Past Medical History Medical history: hyperlipidemia, hypertension Additional medical history: seasonal allergies. Cataracts. Glaucoma Psychiatric history: no psych history - Past Surgical History Surgical History: appendectomy, , orthopedic, other Additional surgical history: shoulder sx, back surgery, bilat hips - Social History Smoking Status: Never smoker Smokeless Tobacco Status: No Alcohol use: occasionally Drug use: none - Family History Mother Living Status: Age at : 72 Cause of : copd Hx Family Respiratory Disorders: Yes (COPD) Hx Family Cancer: Yes (brain cancer) Father Living Status: Age at : 74 Cause of : unknown Hx Family Respiratory Disorders: Yes (COPD) Hx Family Endocrine Disorder: Yes (pancreatitis, diabetes) Medications and Allergies Cholecalciferol (D-3) [Vitamin D] 10,000 unit PO WE 10/11/17 [History] Fluticasone Propionate Nasal [Flonase] 1 spr NS DAILY PRN 10/11/17 [History] Lisinopril-HCTZ 20-12.5 [Prinzide 20-12.5] 1 each PO DAILY 10/11/17 [History] Ubidecarenone [Coq10] 100 mg PO DAILY 10/11/17 [History] Vit A/Vit C/Vit E/Zinc/Copper [Preservision Areds Tablet] 1 each PO BID [History] Latanoprost [Xalatan] 1 drop OP HS 10/12/17 [History] 3 Allergy/AdvReac Type Severity Reaction Status Date / Time Dorzolamide [From Cosopt] Allergy See Verified 05/08/18 11:19 Comments Erythromycin Base Allergy See Verified 05/08/18 11:19 Comments timolol [From Cosopt] Allergy See Verified 05/08/18 11:19 Comments tramadol Allergy Hallucinati Verified 05/08/18 11:19 ng All Systems Reviewed: Constitutional and musculoskeletal systems were reviewed and are negative unless otherwise stated in history of present illness. Physical Exam - Constitutional Vitals: Temp Pulse Resp BP Pulse Ox 98.6 F 91 18 126/80 97 05/25/18 06:57 05/25/18 06:57 05/25/18 06:57 05/25/18 06:57 05/25/18 06:57 Constitutional -Vitals reviewed -The patient is well developed and well nourished. -Mood is pleasant. -The patient is well groomed. Psychiatric -The patient is fully alert and oriented x 3. Respiratory: -Respiratory effort normal Abdomen: -Soft abdomen -Non tender -Non distended: Left upper extremity: -No deformities. The overlying skin is intact. No obvious signs of acute trauma. -No tenderness to palpation throughout. -No significant pain with passive motion of the shoulder, elbow, wrist, and fingers within the limits of the bed. -Able to make an "OK" sign, cross the index and long fingers, and extend the thumb. -Sensation grossly intact to light touch throughout the median, radial, and ulnar distributions. -Radial pulse is present; Fingers have good capillary refill. Right upper extremity: -Small, superficial abrasions throughout the olecranon region though outside of the region of intended surgery. -One of the abrasions is associated with a small skin flap however this does appear to be superficial. -No redness, or concern for infection. -Tenderness over the olecranon. -I did not range the elbow given her known injury. No other tenderness throughout. -She can grossly flex and extend the digits and the hand is warm, sensate, and well-perfused. Left lower extremity: -No deformities. The overlying skin is intact. No obvious signs of acute trauma. -No tenderness to palpation throughout. -No pain with passive motion of the hip, knee, ankle, and toes within the limits of the bed. -No pain with axial loading of the thigh. -Able to dorsiflex and plantarflex the ankle and toes. -Sensation is grossly intact to light touch throughout the sural, saphenous, superficial peroneal, and deep peroneal distributions. -Toes have good capillary refill. Right lower extremity: -No deformities. The overlying skin is intact. No obvious signs of acute trauma. -No tenderness to palpation throughout. -No pain with passive motion of the hip, knee, ankle, and toes within the limits of the bed. -No pain with axial loading of the thigh. -Able to dorsiflex and plantarflex the ankle and toes. -Sensation is grossly intact to light touch throughout the sural, saphenous, superficial peroneal, and deep peroneal distributions. -Toes have good capillary refill. Diagnostic Imaging: I did personally review and interpret x-rays as well as a CT scan of the right elbow which shows a significantly displaced olecranon fracture with mild comminution. Results - Labs Result Diagrams: 05/25/18 03:19 05/25/18 03:19 Labs: Abnormal lab results Sodium 134 mEq/L (136-145) L 05/25/18 03:19 BUN/Creatinine Ratio 32 (6-26) H 05/25/18 03:19 Glucose 140 mg/dL (70-105) H 05/25/18 03:19 H & H 05/25/18 Range/Units 03:19 Hgb 12.4 (11.5-15.4) g/dL Hct 36.8 (35.3-44.9) % All other labs normal. Consult Discharge Plan - Plan Referrals: Candi Hernandez MD [Primary Care Provider] -
[2018-05-25] MEDS ORDERED: *HR* FentaNYL (PF) 100 MCG/2 ML VIAL ONE (12:01)
[2018-05-25] MEDS ORDERED: Ondansetron 4 MG/2 ML VIAL ONE (12:01)
[2018-05-25] MEDS ORDERED: *HR* Succinylcholine 200 MG/10 ML VIAL IVP ONE (12:01)
[2018-05-25] MEDS ORDERED: *HR* Rocuronium Bromide 50 MG/5 ML VIAL ONE (12:01)
[2018-05-25] MEDS ORDERED: Lidocaine -MPF 2% 2 ML VIAL ONE (12:01)
[2018-05-25] MEDS ORDERED: *HR* Propofol 200 MG/20 ML VIAL IVP ONE ×2 (12:02→15:35)
[2018-05-25] MEDS ORDERED: Bupivacaine/EPI 1:200k 0.5%PF 30 ML VIAL ONE (12:20)
--- NOTE | 2018-05-25 12:24 | Anesthesia Evaluation PreOp ---
Date of Encounter: 05/25/18 Time of Encounter: 13:15 - Past History Planned Operation: ORIF olecranon Cardiac History: HTN, Hyperlipidemia Pulmonary History: Denies Any Significant HX SURGICAL CLINICAL REVIEWER History: Denies Any Significant HX Other Medical History: Denies Any Significant HX, Other (obesity) Anesthesia History: No Prior Anesthetic Complications (Underwent hip surgery in without anesthetic complication), Past Anesthesia Alcohol Use: occasionally Drug use: none Medications and Allergies Cholecalciferol (D-3) [Vitamin D] 10,000 unit PO WE 10/11/17 [History] Fluticasone Propionate Nasal [Flonase] 1 spr NS DAILY PRN 10/11/17 [History] Lisinopril-HCTZ 20-12.5 [Prinzide 20-12.5] 1 each PO DAILY 10/11/17 [History] Ubidecarenone [Coq10] 100 mg PO DAILY 10/11/17 [History] Vit A/Vit C/Vit E/Zinc/Copper [Preservision Areds Tablet] 1 each PO BID [History] Latanoprost [Xalatan] 1 drop OP HS 10/12/17 [History] 3 Allergy/AdvReac Type Severity Reaction Status Date / Time Dorzolamide [From Cosopt] Allergy See Verified 05/08/18 11:19 Comments Erythromycin Base Allergy See Verified 05/08/18 11:19 Comments timolol [From Cosopt] Allergy See Verified 05/08/18 11:19 Comments tramadol Allergy Hallucinati Verified 05/08/18 11:19 ng - Meds/Allergy Pre-op Review Medications Reviewed: Yes Allergies Reviewed: Yes Beta Blockers on Current Med List: No Anesthesia Results - Labs 05/25/18 03:19 05/25/18 03:19 - Imaging EKG: report reviewed (sinus rhythm) Anesthesia Exam Selected Entries 05/25/18 10:38 05/25/18 11:16 Temperature 98.2 F Pulse Rate 77 Respiratory Rate 16 Blood Pressure 103/58 O2 Sat by Pulse Oximetry 94 Weight: 81 kg BMI 34 NPO (# of Hours): over 8 hours - HEENT Pupil (Motor): Pupils equal Mallampati: II Teeth: Prosthesis Denture Type: Upper: Partial Oral Opening: Greater than 3 - Cardiac Rhythm: Regular Murmur: None - Pulmonary Breath Sounds: bilateral Clear Respiratory Effort: Symmetrical Anesthesia Assess/Plan ASA Score: 2 Modified Hiren Scale for Level of Consciousness: Cooperative, oriented, and tranquil Anesthetic Plan: General Autologous Blood: Yes Monitoring Plan: Standard Monitors Recovery Plan: PACU
--- NOTE | 2018-05-25 12:27 | Event Note ---
Date of Encounter: 05/25/18 Time of Encounter: 09:35 77-year-old female with known osteoarthritis of the left knee, who was scheduled for left total knee replacement today as an outpatient, presented overnight after a mechanical fall. She was complaining of right elbow pain and was noted to have right olecranon process fracture. CT of the elbow was done this morning and again demonstrated mildly comminuted intra-articular proximal ulnar fracture at the olecranon process. Orthopedics was consulted and the plan is to proceed with open reduction internal fixation of the right olecranon today. Left TKR is likely to be postponed to a later date. Her blood pressure is borderline so we will hold off on Prinzide.
[2018-05-25] MEDS ORDERED: ROPIVACAINE HCL/PF 0.5% 30 ML VIAL ONE (13:05)
[2018-05-25] MEDS ORDERED: *HR* Midazolam HCl 2 MG/2 ML VIAL ONE (13:10)
[2018-05-25] MEDS ORDERED: Lidocaine -MPF 4% 5 ML AMPUL ONE (13:52)
[2018-05-25] MEDS ORDERED: *HR* PHENYLEPHRINE 1,000 MCG/10 ML SYRINGE IVP ONE ×2 (13:58→14:41)
[2018-05-25] MEDS ORDERED: EPHEDrine 50 MG/ML VIAL ONE (14:00)
[2018-05-25] MEDS ORDERED: *HR* FentaNYL (PF) 100 MCG/2 ML VIAL IVP PRN ×2 (14:30→16:32)
[2018-05-25] MEDS ORDERED: *HR* OxyCODONE/APAP 5/325 TABLET PO PRN ×2 (14:30→16:32)
--- NOTE | 2018-05-25 15:01 | Anesthesia Procedures ---
Date of Encounter: 05/25/18 Time of Encounter: 13:25 Procedures: Anesthesia - Nerve Block Procedure Date: 05/25/18 Time: 14:59 Allergies/Adv Reactions: Dorzolamide [From Cosopt] Allergy (Verified 05/08/18 11:19) See Comments Erythromycin Base Allergy (Verified 05/08/18 11:19) See Comments timolol [From Cosopt] Allergy (Verified 05/08/18 11:19) See Comments tramadol Allergy (Verified 05/08/18 11:19) Hallucinating Pre-op Diagnosis: right olecranon fracture Surgical Procedure: right olecranon ORIF Checklist: Correct Patient Identifier, Correct procedure, History checked Correct side: Right Blood Thinner: No Monitor Applied: EKG, BP, Pulse Oximetry Supplemental Oxygen via Nasal Cannula (L/min): 2 Sedation: Versed (mg): 1 Sedation: Fentanyl (mcg): 25 Indication: Post Op Analgesia Pre-op Neuro Deficits: No Block Type: Infraclavicular Catheter placed: No Ultrasound used: Yes Anatomy identified: Yes Visual spread of Local: Yes Nerve Stimulator Range: >0.4 - 0.6 mA Blood on Needle Aspiration: No Smooth Injection of Local: Yes Prep: Chlorhexadine Needle: 21 x 100 mm Stimuplex Local: Ropivacaine, Other (decadron 8 mg) Volume (cc): 30 Number of Attempts: 2 Complications: None/effective block
[2018-05-25] MEDS ORDERED: Neostigmine Methylsulfate 3 MG/3 ML SYRINGE ONE (15:08)
--- NOTE | 2018-05-25 15:57 | Orthopedic Operative Note ---
Date of procedure: 05/25/18 Procedure: OPERATIVE REPORT DATE OF PROCEDURE: 05/25/2018 SURGEON: Juan C Escobar MD HUMAN RESOURCE OFFICER(S): There were no assistants PREOPERATIVE DIAGNOSIS: Right comminuted olecranon fracture POSTOPERATIVE DIAGNOSIS: Right comminuted olecranon fracture PROCEDURE: Open reduction and internal fixation of the right comminuted olecranon fracture ANESTHESIA: Gen. anesthesia PREOPERATIVE ANTIBIOTICS: 2 grams of Ancef ESTIMATED BLOOD LOSS: 10 milliliters TOURNIQUET TIME: 88 minutes at 250 mmHg SPECIMENS: There were no specimens IMPLANTS: Acumed olecranon plate LOCAL INJECTION: No injections PREOPERATIVE NOTE AND INDICATIONS: This patient is a 77-year-old female who sustained a comminuted displaced right olecranon fracture. The recommendation was for open reduction and internal fixation given the amount of displacement. The surgical plan was discussed with the patient. The risks, benefits, alternatives, and potential complications of this procedure were discussed with the patient including injury to veins, arteries, nerves, tendons, ligaments, and bone. Also discussed were the risks of infection, bleeding, pain, blood clots, the possible need for a blood transfusion, the possible need for further procedures, heart attack, stroke, and . Additional risks include malunion , nonunion, hardware failure and collapse, particularly given her osteopenia. All of this was explained in simple terms, and the patient verbalized understanding and wished to proceed. Consent was given to proceed with surgery. PROCEDURE: The patient was seen in the preoperative holding area where the identify and the consent were confirmed. The right elbow was marked. Final questions were answered. The patient was brought back to the operating room and placed supine on the operating room table. A huddle was performed with the patient and all vital surgical team members confirming patient identity, the correct procedure, and the correct operative site. Gen. anesthesia was administered. The right upper extremity was prepped and draped in the usual sterile fashion. A surgical time out was performed immediately preceding the incision with all personnel in the operating room to confirm patient identity, the correct operative site and extremity, correct radiographic studies, availability of appropriate surgical equipment, and agreement on the planned procedure. The limb was exsanguinated and the tourniquet was inflated. The arm was brought across the patient's chest. A posterior direct dorsal incision was made and dissection proceeded carefully through the subcutaneous tissue. Full- thickness flaps were elevated. The ulnar nerve was carefully identified after decompression and protected. The olecranon fragment was identified and a towel clip placed around the triceps insertion. The subcutaneous ulna was dissected out and the fracture was fully evaluated. There is a comminuted fragment along the radial aspect. The wound was copiously irrigated and the fracture was reduced anatomically and held in place with 0.062 K wires 2. The definitive plate was placed and the proximal screw cluster was filled with locking screws. A cortical screw was then placed in compression mode and the shaft compressing the fracture nicely. The remaining holes were filled with locking screws in the shaft. X-rays confirmed excellent reduction. The free radial fragment was placed and sutured with [address]. A #2 FiberWire stitch was placed in Stewardson fashion up and down the triceps musculature and a [address] wire passer was used to pull the stitch underneath the plate and this was tied. The wound was copiously irrigated and the deep layer was closed with 0 Vicryl stitches. The skin was closed with 0 Vicryl, 3- 0 Vicryl, and daron. A soft, sterile dressing was applied followed by posterior long-arm splint with the elbow flexed to about 70 degrees. The instrument, sponge, and needle counts were correct after wound closure. POST OPERATIVE PLAN: Weight Bearing: Nonweightbearing to the right upper extremity. DVT Prophylaxis: Ambulation Activity: Avoid aggressive activities with right upper extremity. Wound Care: I will evaluate the wound at 1 week Pain Control: Per the primary team Perioperative antibiotic prophylaxis: 2 doses of Ancef Follow Up: Follow-up in the office with me in 1 week. Was there an fast food assistant restaurant manager present: No Estimated blood loss (cc): 10
[2018-05-25] MEDS: Latanoprost 2.5 ML BOTTLE BOTH EYES SCH (22:23)
[2018-05-26 06:26] LABS: Basophils % 0.1 %; Hematocrit 36.1 % (35.3-44.9); Hemoglobin 11.6 g/dL (11.5-15.4); Immature Granulocytes % 0.3 % (0-4); Lymphocytes # 1.2 K/mcL (0.6-4.6); Lymphocytes % 10.1 %; Mean Corpuscular HGB Conc 32.1 g/dL (31.6-35.5); Mean Corpuscular Hemoglobin 31.4 pg (28.0-33.3); Mean Corpuscular Volume 97.8 fL (83.0-100.0); Mean Platelet Volume 10.5 fL (9.4-12.4); Monocytes % 8.3 %; Neutrophils # 9.3 K/mcL (1.6-8.9); Platelet Count 241 K/mcL (140-400); Red Blood Count 3.69 M/mcL (3.82-4.97); Red Cell Distribution Width 13.2 % (11.5-14.5); Segmented Neutrophils % 81.2 %
[2018-05-26 06:43] LABS: BUN/Creatinine Ratio 29 (6-26); Blood Urea Nitrogen 17 mg/dL (8-23); Calcium 9.6 mg/dL (8.6-10.3); Carbon Dioxide 23 mEq/L (23-29); Chloride 106 mEq/L (98-107); Glucose 114 mg/dL (70-105); Osmolality,Calculated 286 (280-300); Potassium 4.2 mEq/L (3.5-5.1); Sodium 137 mEq/L (136-145); eGFR For Non-African Americans > 60 (> 60)
[2018-05-26] MEDS: Pantoprazole 40 MG VIAL IVP SCH (06:51)
[2018-05-26] MEDS ORDERED: Patient Taking Own Medication 1 EACH PO SCH (09:00)
[2018-05-26] MEDS: Multivit/Ca/Min/Fe/FA 1 TAB TABLET PO SCH (10:06)
[2018-05-26] MEDS: OXYCODONE Oral CONC 10 MG/0.5 ML ORAL.SYG SL PRN ×2 (16:37→22:31)
--- NOTE | 2018-05-26 18:11 | Orthopedics Progress Note ---
Date of Encounter: 05/26/18 Time of Encounter: 08:00 Subjective Interval history: Doing fine POD#1 s/p ORIF olecranon. Pain is controlled. Block in place but able to move fingers AFVSS GEN: NAD RUE: Splint c/d/i SILT over m/r/u Able to give thumbs up, ok sign, cross fingers POD#1 s/p ORIF R olecranon -NWB through RUE -Continue splint until follow up with Dr Escobar -D/c when arranged through hospitalist service Objective Vital signs: Vital Signs Temp Pulse Resp BP Pulse Ox 05/26/18 16:02 97.7 F 88 16 209/68 99 05/26/18 11:02 97.8 F 73 16 188/79 97 05/26/18 07:50 97.9 F 79 96 05/26/18 03:44 98.4 F 82 16 100/70 93 05/25/18 23:37 97.8 F 79 16 99/61 94 05/25/18 18:20 97.6 F 91 95/61 90 Intake and Output 05/26/18 05/26/18 05/26/18 07:59 15:59 23:59 Intake Total 200 / 200 480 / 480 Balance 200 / 200 480 / 480 Intake: Oral 200 / 200 480 / 480 Other: Meal Lunch Percent of Meal Consumed 75% # Voids 1 1 1 - Labs CBC & BMP: 05/26/18 05:46 05/26/18 05:46 Labs: Abnormal lab results WBC 11.4 K/mcL (4.3-11.1) H 05/26/18 05:46 RBC 3.69 M/mcL (3.82-4.97) L 05/26/18 05:46 Neutrophils # 9.3 K/mcL (1.6-8.9) H 05/26/18 05:46 Creatinine 0.59 mg/dL (0.60-1.20) L 05/26/18 05:46 BUN/Creatinine Ratio 29 (6-26) H 05/26/18 05:46 Glucose 114 mg/dL (70-105) H 05/26/18 05:46 - VTE Documentation of Mechanical Device: Intermittent pneumatic compression device Consult Discharge Plan - Plan Referrals: Candi Hernandez MD [Primary Care Provider] -
--- NOTE | 2018-05-26 18:33 | Internal Med Progress Note ---
Hospitalist Progress Note - Encounter Date of Encounter: 05/26/18 Time of Encounter: 11:30 - Subjective Interval History: Patient denies fever chills nausea vomiting headache dizziness abdominal pain. She had some tingling sensation in right upper extremity but denies pain. Review the lab - Exam Vitals: Temp Pulse Resp BP Pulse Ox 97.7 F 88 16 209/68 99 05/26/18 16:02 05/26/18 16:02 05/26/18 16:02 05/26/18 16:02 05/26/18 16:02 Exam: General appearance: No acute distress, A&O X 3 Head exam: Atraumatic Eye exam: EOMI, PERRLA ENT exam: Moist oral mucosa Neck nontender, supple Respiratory exam: Clear to auscultation bilaterally Cardiovascular exam: Regular rate and rhythm, no systolic murmur Abdominal exam: Soft, nontender, nondistended, positive bowel sounds Extremities exam: Right upper extremity-mowing all fingers with some tingling but sensation intact. Radial pulse palpable. Splint in place Neurological exam: Grossly intact - Assessment and Plan (1) Fracture of olecranon process of right ulna Current Visit: Yes Status: Acute Assessment and Plan: Postop day 1 status post ORIF right olecranon process. PTOT on board. Pain management. Plan to discharge possibly tomorrow after discussing with PT and psych social worker. Orthopedics on board. (2) Fall Current Visit: Yes Status: Acute Assessment and Plan: Patient sustained right elbow fracture status post mechanical fall No loss of consciousness or head/neck trauma Continue fall precautions PT/OT consulted (3) Hypertension Current Visit: Yes Status: Chronic Assessment and Plan: Continue home meds. Hydralazine when necessary (4) Hyperlipidemia Current Visit: No Status: Chronic Assessment and Plan: Continue home meds (5) Obesity (BMI 30.0-34.9) Current Visit: Yes Status: Chronic Assessment and Plan: Lifestyle modification (6) Osteoarthritis of left knee Current Visit: Yes Status: Chronic Assessment and Plan: Patient was initially scheduled for left knee replacement 05/25/[address] Jacobs. Patient reports history of osteoarthritis and difficulty ambulating secondary to pain and difficulty with balance. Most likely procedure will be rescheduled on OPD basis. Orthopedics consulted (7) DVT prophylaxis Current Visit: Yes Status: Acute Assessment and Plan: SCDs, patient is ambulating - Time Spent with Patient Total time spent is greater than 50% in coordination of care (as documented) at patient's floor/unit and/or counseling patient: 25 - 35 minutes Internal Medicine: Result - Labs CBC & Chem 7: 05/26/18 05:46 05/26/18 05:46 Labs: Short CBC 05/26/18 Range/Units 05:46 WBC 11.4 H (4.3-11.1) K/mcL Hgb 11.6 (11.5-15.4) g/dL Hct 36.1 (35.3-44.9) % Plt Count 241 (140-400) K/mcL Neutrophils # 9.3 H (1.6-8.9) K/mcL BMP 05/26/18 05:46 Sodium 137 Potassium 4.2 Chloride 106 Carbon Dioxide 23 BUN 17 Creatinine 0.59 L Glucose 114 H Calcium 9.6 - ABG Interpretation ABG results: PT/INR, D-dimer PT 11.5 Seconds (9.4-12.1) 05/25/18 03:19 - VTE Documentation of Mechanical Device: Intermittent pneumatic compression device Consult Discharge Plan - Plan Referrals: Candi Hernandez MD [Primary Care Provider] - (1) Fracture of olecranon process of right ulna Qualifiers: Encounter type: initial encounter Fracture type: closed Qualified Code(s): S52.021A - Displaced fracture of olecranon process without intraarticular extension of right ulna, initial encounter for closed fracture (2) Fall Qualifiers: Encounter type: initial encounter Qualified Code(s): W19.XXXA - Unspecified fall, initial encounter (3) Hypertension Qualifiers: Hypertension type: unspecified Qualified Code(s): I10 - Essential (primary) hypertension (4) Hyperlipidemia Qualifiers: Hyperlipidemia type: unspecified Qualified Code(s): E78.5 - Hyperlipidemia, unspecified (6) Osteoarthritis of left knee Qualifiers: Osteoarthritis type: unspecified Qualified Code(s): M17.12 - Unilateral primary osteoarthritis, left knee
[2018-05-26] MEDS: Latanoprost 2.5 ML BOTTLE BOTH EYES SCH (20:25)
[2018-05-27 01:36] LABS: BUN/Creatinine Ratio 38 (6-26); Blood Urea Nitrogen 24 mg/dL (8-23); Calcium 9.2 mg/dL (8.6-10.3); Carbon Dioxide 25 mEq/L (23-29); Chloride 104 mEq/L (98-107); Glucose 121 mg/dL (70-105); Osmolality,Calculated 287 (280-300); Sodium 136 mEq/L (136-145); eGFR For Non-African Americans > 60 (> 60)
[2018-05-27] MEDS: OXYCODONE Oral CONC 10 MG/0.5 ML ORAL.SYG SL PRN (03:56)
[2018-05-27] MEDS: Pantoprazole 40 MG VIAL IVP SCH (05:28)
[2018-05-27 07:20] VITALS: BP 144/76
[2018-05-27 08:10] LABS: Basophils % 0.3 %; Eosinophils # 0.2 K/mcL (0.0-0.6); Eosinophils % 1.5 %; Hematocrit 36.2 % (35.3-44.9); Immature Granulocytes % 0.3 % (0-4); Mean Corpuscular HGB Conc 33.1 g/dL (31.6-35.5); Mean Corpuscular Hemoglobin 32.1 pg (28.0-33.3); Mean Corpuscular Volume 96.8 fL (83.0-100.0); Mean Platelet Volume 10.3 fL (9.4-12.4); Monocytes % 9.5 %; Neutrophils # 6.1 K/mcL (1.6-8.9); Platelet Count 234 K/mcL (140-400); Red Blood Count 3.74 M/mcL (3.82-4.97); Red Cell Distribution Width 13.4 % (11.5-14.5); Segmented Neutrophils % 59.4 %
[2018-05-27] MEDS ORDERED: Cholecalciferol (D-3) 1,000 UNIT TABLET PO SCH ×2 (09:00)
--- NOTE | 2018-05-27 09:10 | Discharge Summary ---
- NOTES TO OUTPATIENT PROVIDER Notes to Outpatient Provider: Keep appointment with orthopedic addition as advised-N1 to 2 weeks. Follow with PCP in 3-5 days. Continue home health care for PT OT Orders not resulted at time of discharge: Pending orders 05/25/18 13:13 US anesthesia pain block [US] Stat Date of Encounter: 05/27/18 Time of Encounter: 09:08 - Discharge Diagnosis (1) Fracture of olecranon process of right ulna Priority: Primary Status: Acute Assessment and Plan: Postop day 2 status post ORIF right olecranon process. PTOT on board and advised to discharge home on home health care. Pain is fairly well-controlled therefore will continue pain medicine for few days and further reevaluation as per PCP. Orthopedic physician okay to discharge patient home with outpatient follow-up. Qualifiers: Encounter type: initial encounter Fracture type: closed Qualified Code(s) : S52.021A - Displaced fracture of olecranon process without intraarticular extension of right ulna, initial encounter for closed fracture (2) Fall Priority: Primary Status: Acute Assessment and Plan: Patient sustained right elbow fracture status post mechanical fall No loss of consciousness or head/neck trauma Continue fall precautions Qualifiers: Encounter type: initial encounter Qualified Code(s): W19.XXXA - Unspecified fall, initial encounter (3) Hypertension Priority: Secondary Status: Chronic Assessment and Plan: Continue home meds. BP well controlled Qualifiers: Hypertension type: unspecified Qualified Code(s): I10 - Essential (primary ) hypertension (4) Hyperlipidemia Priority: Secondary Status: Chronic Assessment and Plan: Continue home meds Qualifiers: Hyperlipidemia type: unspecified Qualified Code(s): E78.5 - Hyperlipidemia , unspecified (5) Obesity (BMI 30.0-34.9) Priority: Secondary Status: Chronic Assessment and Plan: Lifestyle modification (6) Osteoarthritis of left knee Priority: Secondary Status: Chronic Assessment and Plan: Patient was initially scheduled for left knee replacement 05/25/[address] Jacobs. Follow-up with ortho on OPD basis. Qualifiers: Osteoarthritis type: unspecified Qualified Code(s): M17.12 - Unilateral primary osteoarthritis, left knee Hospital course: Ms. Calix is a 77 year old female was admitted for right elbow fracture. Also was consulted and status post ORIF of right olecranon process. Postop recovery has been satisfied therefore decided to discharge patient home on home health care with continuation of PT OT. Patient needs to keep appointment with orthopedic as scheduled. Please see diagnoses section of discharge summary for the details. Patient is clinically and hemodynamically stable, ambulating and tolerating oral diet at the time of discharge. Discharge discussed with: patient - Time Spent with Patient Total time spent providing and/or coordinating discharge services: - Discharge Medications Home Medications: Cholecalciferol (D-3) [Vitamin D] 10,000 unit PO WE 10/11/17 [History] Fluticasone Propionate Nasal [Flonase] 1 spr NS DAILY PRN 10/11/17 [History] Lisinopril-HCTZ 20-12.5 [Prinzide 20-12.5] 1 each PO DAILY 10/11/17 [History] Ubidecarenone [Coq10] 100 mg PO DAILY 10/11/17 [History] Vit A/Vit C/Vit E/Zinc/Copper [Preservision Areds Tablet] 1 each PO BID [History] Latanoprost [Xalatan] 1 drop OP HS 10/12/17 [History] Acetaminophen [Tylenol] 650 mg PO Q6HR PRN #30 tablet 05/27/18 [Rx] OxyCODONE/APAP 5/325 [Percocet 5/325 MG] 1 each PO Q8HR PRN 4 Days #10 tablet [Rx] Allergies/Adverse Reactions: 3 Allergy/AdvReac Type Severity Reaction Status Date / Time Dorzolamide [From Cosopt] Allergy See Verified 05/08/18 11:19 Comments Erythromycin Base Allergy See Verified 05/08/18 11:19 Comments timolol [From Cosopt] Allergy See Verified 05/08/18 11:19 Comments tramadol Allergy Hallucinati Verified 05/08/18 11:19 ng Date of admission: 05/25/18 07:15 Primary care physician: Candi Hernandez MD Consults: 05/25/18 00:18 Consult to Pastoral Services [CONS] Routine Comment: 05/25/18 02:44 Consult to Occupational Therapy [CONS] Routine Comment: Evaluate, develop and implement CARI, CHIKIS PETERSON Reason for Consult: right elbow fracture, right hand dominant Does patient have active BEDREST order?: No Is patient medically & hemodynamically stable?: Yes Patient assessed for mobility or mobilized this visit?: No Consult to Physical Therapy [CONS] Routine Comment: Evaluate, develop and implement CHIKIS ALCALA Reason for Consult: right elbow fracture, right hand dominant Does patient have active BEDREST order?: No Is patient medically & hemodynamically stable?: Yes Patient assessed for mobility or mobilized this visit?: No 05/25/18 02:45 Consult to Orthopedic Surgery [CONS] Routine Consulting Provider: [facility] Reason for Consult: Comminuted, displaced right olecranon process, left knee osteoarthritis Time Notified: 08:00 Call Completed: Yes 05/26/18 15:34 Consult to Can[employer]ricator [CONS] Routine Reason for SW Consult: Discharge planning - Constitutional Vitals: Temp Pulse Resp BP Pulse Ox 98 F 87 16 144/76 98 05/27/18 06:48 05/27/18 06:48 05/27/18 06:48 05/27/18 06:48 05/27/18 06:48 General appearance: Present: cooperative, A&O X 3, pleasant, answers questions appropriately Exam: General appearance: No acute distress, A&O X 3 Head exam: Atraumatic Eye exam: EOMI, PERRLA ENT exam: Moist oral mucosa Neck nontender, supple Respiratory exam: Clear to auscultation bilaterally Cardiovascular exam: Regular rate and rhythm, no systolic murmur Abdominal exam: Soft, nontender, nondistended, positive bowel sounds Extremities exam: No calf tenderness, no pedal edema Present: Right upper extremity-tender at elbow, a splint present. Moving all the fingers, radial pulse palpable. Neurological exam: Alert, awake, oriented 3, CN II-XII intact, no focal deficits. Normal gait - Patient Status Disposition: Home Health Service Condition: Fair Overall status at discharge: patient is progressing back to baseline - Discharge Instructions Follow Up With: Candi Hernandez MD [Primary Care Provider] - - Diet and Activity Activity: as per physical therapy Diet: low salt diet - VTE Documentation of Mechanical Device: Intermittent pneumatic compression device
--- NOTE | 2018-05-27 09:22 | Physician Discharge Referral ---
Home Health/Hosp Referral Info Transfer to: Home Health Provider in Charge Post Discharge: PCP - Diagnosis (1) Fracture of olecranon process of right ulna Priority: Primary Status: Acute (2) Fall Priority: Primary Status: Acute (3) Hypertension Priority: Secondary Status: Chronic (4) Hyperlipidemia Priority: Secondary Status: Chronic (5) Obesity (BMI 30.0-34.9) Priority: Secondary Status: Chronic (6) Osteoarthritis of left knee Priority: Secondary Status: Chronic - Respiratory Orders Smoking Cessation: Smoking cessation has been advised. For more information, call the [place] Tobacco Quit Line at 3-706-ZSJA-NOW. - Activity Activity Orders: Ambulate - Services Needed Following services are medically necessary services: Nursing, Physical Therapy, Occupational Therapy - Transfer Medications Prescriptions: Acetaminophen [Tylenol] 650 mg PO Q6HR PRN #30 tablet PRN Reason: Mild Pain/Fever OxyCODONE/APAP 5/325 [Percocet 5/325 MG] 1 each PO Q8HR PRN 4 Days #10 tablet PRN Reason: Moderate Pain Home Medications: Cholecalciferol (D-3) [Vitamin D] 10,000 unit PO WE 10/11/17 [History] Fluticasone Propionate Nasal [Flonase] 1 spr NS DAILY PRN 10/11/17 [History] Lisinopril-HCTZ 20-12.5 [Prinzide 20-12.5] 1 each PO DAILY 10/11/17 [History] Ubidecarenone [Coq10] 100 mg PO DAILY 10/11/17 [History] Vit A/Vit C/Vit E/Zinc/Copper [Preservision Areds Tablet] 1 each PO BID [History] Latanoprost [Xalatan] 1 drop OP HS 10/12/17 [History] Acetaminophen [Tylenol] 650 mg PO Q6HR PRN #30 tablet 05/27/18 [Rx] OxyCODONE/APAP 5/325 [Percocet 5/325 MG] 1 each PO Q8HR PRN 4 Days #10 tablet [Rx] Allergies/Adverse Reactions: 3 Allergy/AdvReac Type Severity Reaction Status Date / Time Dorzolamide [From Cosopt] Allergy See Verified 05/08/18 11:19 Comments Erythromycin Base Allergy See Verified 05/08/18 11:19 Comments timolol [From Cosopt] Allergy See Verified 05/08/18 11:19 Comments tramadol Allergy Hallucinati Verified 05/08/18 11:19 ng Certification: Further, I certify that my clinical findings support that this patient is homebound (i.e. absences from home require considerable and taxing effort and are for medical reasons or quaker services or infrequently or short duration when for other reasons) because patient cannot drive due to right elbow fracture Homebound Reason: Patient requires assistance of a person or device to safely leave home Attestation: My signature below is to certify that this patient is under my care and that I, or nurse practitioner, or a physician's care team assistant working with me, has a face-to -face encounter with this patient.
[2018-05-27] MEDS: Multivit/Ca/Min/Fe/FA 1 TAB TABLET PO SCH (09:41)
== END 2018-05-27 13:00 | disposition home health service (06) | DRG 512 ==
LOC: 3NENU → SUATTDRO 05-25 07:15
PROVIDERS: ADMIT Family Medicine; ATTEND Internal Medicine

== ENCOUNTER 2018-08-17 09:31 | Inpatient (IN) ==
--- NOTE | 2018-08-17 07:38 | Discharge Summary ---
Addendum entered and electronically signed by Bruce Jacobs MD 08/28/18 11:06: acute blood loss anemia Original Note: <Bruce Jacobs - Last Filed: 08/19/18 10:24> Orders not resulted at time of discharge: Pending orders 08/17/18 07:37 XR knee LT 1-2V [XR] Routine H/H [Hemoglobin and Hematocrit] [HEME] Routine 08/17/18 10:02 US anesthesia pain block [US] Routine - Discharge Diagnosis (1) Acute blood loss anemia Status: Acute - Hospital Course Hospital course: Ms. Calix is a 77 year old female - Time Spent with Patient Total time spent providing and/or coordinating discharge services: - Discharge Medications Home Medications: Cholecalciferol (D-3) [Vitamin D] 10,000 unit PO WE 10/11/17 [History] Fluticasone Propionate Nasal [Flonase] 1 spr NS DAILY PRN 10/11/17 [History] Lisinopril-HCTZ 20-12.5 [Prinzide 20-12.5] 1 tab PO DAILY 10/11/17 [History] Ubidecarenone [Coq10] 100 mg PO DAILY 10/11/17 [History] Vit A/Vit C/Vit E/Zinc/Copper [Preservision Areds Tablet] 1 each PO BID 10/11/17 [History] Latanoprost [Xalatan] 1 drop OP HS 10/12/17 [History] Aspirin Enteric Coated [Aspirin EC] 325 mg PO BID #20 tablet. 08/17/18 [Rx] Fructooligosaccharides/Polydex [Fiber-Stat 15 gm/30 ml Liquid] 15 gm PO DAILY 08/17/18 [History] OxyCODONE Immed Rel [Roxicodone 5 MG] 5 mg PO Q6HR PRN 7 Days #28 tablet 08/17/18 [Rx] Cyclobenzaprine [Flexeril] 10 mg PO TID PRN tablet 08/20/18 [Rx] Docusate [Colace] 100 mg PO BID capsule 08/20/18 [Rx] Allergies/Adverse Reactions: Allergy/AdvReac Type Severity Reaction Status Date / Time Dorzolamide [From Cosopt] Allergy See Verified 08/17/18 10:32 Comments Erythromycin Base Allergy See Verified 08/17/18 10:32 Comments timolol [From Cosopt] Allergy See Verified 08/17/18 10:32 Comments tramadol Allergy Hallucinati Verified 08/17/18 10:32 ng Primary care physician: Candi Hernandez MD - Patient Status Disposition: Transfer Inpatient Rehab Fac Condition: Good - Ambulatory Orders Ambulatory Orders: XR knee 3V LT [XR] Time Frame: 08/26/18, Location: N/A - Discharge Instructions Instructions: Total Knee Replacement (DC) Follow Up With: Candi Hernandez MD [Primary Care Provider] - <Monika Randle - Last Filed: 08/21/18 12:51> Orders not resulted at time of discharge: Pending orders 08/17/18 07:37 XR knee LT 1-2V [XR] Routine H/H [Hemoglobin and Hematocrit] [HEME] Routine Date of Encounter: 08/21/18 Time of Encounter: 17:44 - Discharge Diagnosis (1) Status post total knee replacement, left Priority: Primary Status: Acute (2) Arthritis of knee, left Priority: Primary Status: Acute (3) Hyperlipidemia Priority: Secondary Status: Chronic Qualifiers: Hyperlipidemia type: mixed hyperlipidemia Qualified Code(s): E78.2 - Mixed hyperlipidemia (4) Hypertension Priority: Secondary Status: Chronic Qualifiers: Hypertension type: essential hypertension Qualified Code(s): I10 - Essential (primary) hypertension (5) Obesity (BMI 30.0-34.9) Priority: Secondary Status: Chronic (6) Heart murmur Priority: Secondary Status: Chronic (7) Acute blood loss anemia Priority: Secondary Status: Acute - Hospital Course Hospital course: Ms. Calix is a 77 year old female Left TKR 08/17 - daron in place Patient seen at bedside, without complaints. A&O x 3 08/20 - no active bleeding from knee; change dressing and replace. Afebrile, vital signs stable. Vital Signs Temp Pulse Resp BP Pulse Ox 08/21/18 11:03 97.4 F L 80 12 126/70 100 08/21/18 07:07 97.9 F 74 16 136/66 96 08/21/18 03:57 98.2 F 80 18 148/71 92 08/20/18 23:03 98.3 F 78 17 139/66 96 08/20/18 18:40 99.1 F 84 18 122/57 95 08/20/18 14:54 98.6 F 68 16 95 08/20/18 14:08 98.4 F 63 16 141/76 94 Intake and Output 08/20/18 08/21/18 08/21/18 23:59 07:59 15:59 Intake Total 400 / 400 300 / 300 360 / 360 Output Total 400 / 400 Balance 400 / 400 300 / 300 -40 / -40 Intake: Oral 400 / 400 300 / 300 360 / 360 Output: Urine 400 / 400 Other: Meal Dinner Breakfast Percent of Meal Consumed 60% 100% # Voids 1 Labs reviewed. Stable today 08/18 - Acute blood loss anemia, with symptoms - Given 2 units of blood Short CBC 08/21/18 Range/Units 04:27 Hgb 9.9 L (11.5-15.4) g/dL Hct 30.7 L (35.3-44.9) % BMP 08/21/18 Range/Units 04:27 Sodium 137 (136-145) mEq/L Potassium 3.7 (3.5-5.1) mEq/L Chloride 102 (98-107) mEq/L Carbon Dioxide 27 (23-29) mEq/L BUN 18 (8-23) mg/dL Creatinine 0.49 L (0.60-1.20) mg/dL Glucose 118 H (70-105) mg/dL Calcium 9.0 (8.6-10.3) mg/dL Pain control: adequate- Added Lidoderm patch Participating in PT. All questions and concerns addressed. Educated on use of incentive spirometer. Encouraged ambulation and proper hydration. Patient educated on post-operative restrictions and post-operative care. Assessment and plan: Continue with postoperative care Discharge plan: ECF, converted to Admit 08/18, discharge Friday Due to her going to [place], plan will for follow up POW2 - Time Spent with Patient Total time spent providing and/or coordinating discharge services: Primary care physician: Candi Hernandez MD - Patient Status Functional capacity at discharge: uses cane/walker Overall status at discharge: patient is progressing back to baseline - Diet and Activity Activity: as per physical therapy Diet: advance to your usual diet
[2018-08-17] MEDS ORDERED: Acetaminophen IV 1,000 MG/100 ML INFUS..BTL IVPB ONE (10:00)
[2018-08-17] MEDS ORDERED: Ringers Solution, Lactated 1,000 ML IVC SCH ×2 (10:00→14:56)
[2018-08-17] MEDS ORDERED: Famotidine 20 MG/2 ML VIAL IVP ONE (10:00)
[2018-08-17] MEDS ORDERED: CeFAZolin Syr 2,000MG/20 ML 2,000 MG/20 ML SYRINGE IVPB ONE (10:11)
--- NOTE | 2018-08-17 10:20 | History & Physical Report ---
Date of Encounter: 08/17/18 Time of Encounter: 10:20 24 Hour HP Update - Instructions Instructions: If the History and Physical is less than 30 days old and was completed prior to A.M. admission and or procedure and has NOT been updated on calendar day of procedure please complete this update prior to performing procedure. - Update Patient reports changes in Medical Condition: No Changes in examination, assessment, or condition: No Changes in Medication: No Preop tests/diagnostics Reviewed: Yes Surgery Remains Indicated: Yes Consent for Planned Operative Procedure(s) Verified: Yes - Pre-Operative Checklist Preoperative Checklist Indicated: No Prophylactic Antibiotic Ordered: Yes Is VTE Prophylaxis Indicated?: Yes
[2018-08-17] MEDS ORDERED: *HR* FentaNYL (PF) 100 MCG/2 ML VIAL ONE (10:44)
[2018-08-17] MEDS ORDERED: *HR* Propofol 200 MG/20 ML VIAL IVP ONE (10:45)
[2018-08-17] MEDS ORDERED: *HR* Midazolam HCl 2 MG/2 ML VIAL ONE (10:45)
--- NOTE | 2018-08-17 11:12 | Anesthesia Evaluation PreOp ---
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 HOOKER History: Denies Any Significant HX Other Medical History: Denies Any Significant HX Anesthesia History: Past Anesthesia (Lumbar Spine Surgery Hardware Placement) : No Alcohol Use: occasionally Drug use: none Medications and Allergies Cholecalciferol (D-3) [Vitamin D] 10,000 unit PO WE 10/11/17 [History] Fluticasone Propionate Nasal [Flonase] 1 spr NS DAILY PRN 10/11/17 [History] Lisinopril-HCTZ 20-12.5 [Prinzide 20-12.5] 1 tab PO DAILY 10/11/17 [History] Ubidecarenone [Coq10] 100 mg PO DAILY 10/11/17 [History] Vit A/Vit C/Vit E/Zinc/Copper [Preservision Areds Tablet] 1 each PO BID 10/11/17 [History] Latanoprost [Xalatan] 1 drop OP HS 10/12/17 [History] Acetaminophen [Tylenol] 650 mg PO Q6HR PRN #30 tablet 05/27/18 [Rx] Fructooligosaccharides/Polydex [Fiber-Stat 15 gm/30 ml Liquid] 15 gm PO DAILY 08/17/18 [History] Ibuprofen [Advil] 200 mg PO TID PRN 08/17/18 [History] Allergy/AdvReac Type Severity Reaction Status Date / Time Dorzolamide [From Cosopt] Allergy See Verified 08/17/18 10:32 Comments Erythromycin Base Allergy See Verified 08/17/18 10:32 Comments timolol [From Cosopt] Allergy See Verified 08/17/18 10:32 Comments tramadol Allergy Hallucinati Verified 08/17/18 10:32 ng - Meds/Allergy Pre-op Review Medications Reviewed: Yes Allergies Reviewed: Yes Beta Blockers on Current Med List: No Anesthesia Results - Labs Laboratory Tests 08/13/18 08/13/18 08/13/18 11:20 11:20 11:20 Hgb 12.8 Hct 40.7 Plt Count 294 PT 10.9 INR 1.0 APTT 30.5 Sodium 136 Potassium 4.5 BUN 26 H Creatinine 0.66 - Imaging EKG: report reviewed (SR) Anesthesia Exam O2 Sat Height 1.55 m Height 1.55 m Weight 79.379 kg Weight 79.379 kg O2 Sat by Pulse Oximetry 98 Vital Signs Temp Pulse Resp BP Pulse Ox 97.9 F 79 18 189/97 98 08/17/18 10:01 08/17/18 10:01 08/17/18 10:01 08/17/18 10:01 08/17/18 10:01 Height: 5'1 Weight: 175 lbs NPO (# of Hours): MN Pain Scale: 0 - HEENT Pupil (Motor): Pupils equal, EOMI Mallampati: II Teeth: Normal Oral Opening: Greater than 3 - CRANE HOOKER LOC: Oriented CRANE HOOKER Motor: Normal RUE, Normal LUE, Normal RLE, Normal LLE, Normal Face CRANE HOOKER Sensory: Normal: RUE, LUE, RLE, LLE, Face - Cardiac Rhythm: Regular Murmur: None JVD: No Carotid Bruit: No - Pulmonary Breath Sounds: bilateral Clear Respiratory Effort: Symmetrical Anesthesia Assess/Plan ASA Score: 2 Modified Hiren Scale for Level of Consciousness: Cooperative, oriented, and tranquil Anesthetic Plan: General, Regional Monitoring Plan: Standard Monitors Recovery Plan: PACU (Discussed GA and RA, agrees to proceed)
[2018-08-17] MEDS ORDERED: *HR* Promethazine 25 MG/ML VIAL IVP PRN (11:13)
[2018-08-17] MEDS ORDERED: *HR* OxyCODONE Immed Rel 5 MG TABLET PO PRN (11:13)
[2018-08-17] MEDS ORDERED: Bupivacaine/Clonidine Syringe 1 EACH SYRINGE ONE (11:37)
[2018-08-17] MEDS ORDERED: ROPIVACAINE HCL/PF 0.5% 30 ML VIAL ONE (11:37)
[2018-08-17] MEDS ORDERED: Ethanol\\Acetic Acid\\Na Ace\\Ben 1,000 ML IRRIG.SOLN IR ONE (11:39)
--- NOTE | 2018-08-17 12:30 | Anesthesia Procedures ---
Date of Encounter: 08/17/18 Time of Encounter: 11:10 Procedures: Anesthesia - Nerve Block Procedure Date: 08/17/18 Time: 12:00 Pre-op Diagnosis: Left Knee OA Surgical Procedure: Left TKA Checklist: Correct Patient Identifier Correct side: Left Blood Thinner: No Monitor Applied: EKG, BP, Pulse Oximetry Supplemental Oxygen via Nasal Cannula (L/min): 2 Sedation: Versed (mg): 2 Sedation: Fentanyl (mcg): 100 Indication: Post Op Analgesia Pre-op Neuro Deficits: No Block Type: Other (Adductor Canal Block IPACK) Catheter placed: No Depth at skin (cm): 3 Sterile Technique: Yes Ultrasound used: Yes Anatomy identified: Yes Visual spread of Local: Yes Neuro Stimulation: No Blood on Needle Aspiration: No Smooth Injection of Local: Yes Pain with Injection of Local: No Prep: Chlorhexadine Needle: 21 x 100 mm Stimuplex Local: 0.25% Bupivicaine w/Clonidine 20 mcg/cc, Ropivacaine, Other (Dexamethasone) Volume (cc): 30 Number of Attempts: 1 Complications: None/effective block Vitals: Vital Signs/O2 Sat/Glucose, Most Current Temp Pulse Resp BP Pulse Ox 08/17/18 12:11 74 16 118/78 100 08/17/18 12:03 77 16 122/61 100 08/17/18 11:53 18 18 144/84 100 08/17/18 10:01 97.9 F 79 18 189/97 98
[2018-08-17] MEDS ORDERED: Lidocaine -MPF 2% 2 ML VIAL ONE (12:45)
[2018-08-17] MEDS ORDERED: Dexamethasone 4 MG/ML VIAL ONE (12:45)
[2018-08-17] MEDS ORDERED: Ondansetron 4 MG/2 ML VIAL ONE (12:45)
--- NOTE | 2018-08-17 13:06 | Orthopedic Operative Note ---
Date of procedure: 08/17/18 Pre-op diagnosis: Left knee arthritis Post-op diagnosis: same Procedure: Procedure: robotic-assisted Total knee replacement Estimated blood loss: 200 cc Hardware: Metal and polyethylene replacement. Fabiola Femur: 3 Tibia: 3 TS insert: 9 Patella: 36 Exam Under anesthesia: 13 degree flexion contracture 4 degrees valgus as calculated by the robot full flexion and no instability Procedural Notes: Grade 4 arthritic changes all 3 compartments. Operative procedure: The patient was brought to the operating room and placed on the operating room table. After general anesthesia was administered the operative knee was examined. Findings were noted in the exam under anesthesia. The operative extremity was prepped and draped in sterile surgical fashion. The patient received IV antibiotics prior to skin incision. A standard midline i ncision was made centered over the patella. The incision was made through the skin and subcutaneous tissue. A medial parapatellar tendon approach was performed. Care was taken to preserve tissue along the medial aspect of the patella. And to protect the patella tendon. The deep MCL was released off the medial tibia. The infra patella fat pad was excised. The patella was everted and cut was made at the level of the insertion of the quadriceps and patella tendon. The patella was sized the guide was seated and the lug holes are drilled. Knee was brought into flexion. Patient noted to have grade 4 arthritic changes all 3 compartments. Steinmann pins were placed in the tibia and the femur for the tibial and femoral arrays respectively. Checkpoints were also placed in the tibia and the femur for calculation purposes. The knee including the femur and the tibial registered. Osteophytes, ACL and PCL were excised at this point. Extension and flexion were assessed with a valgus stress components were adjusted on the computer to balance the knee. Femoral cuts were made first with robotic assistance, these included the anterior cut posterior cuts chamfer cuts. Tibial cut was then performed with robotic assistance as well. Bone fragments were removed, as well as the medial and lateral meniscus. The size 3 femoral guide was seated box cut was made lug holes are drilled. The size 3 tibial tray was seated and prepared with the fin cutter. Trial reduction with the 9 TS Bea revealed extension of 0 degree and 2 degrees varus full flexion. No varus valgus instability. Trial reduction revealed excellent patella tracking. All trial components were removed all bony surfaces were irrigated. The Tibia was seated followed by the femur, The selected Bea size was seated and secured patella. Patient had similar findings for motion and stability. The knee was closed by the PA. The knee was then irrigated out with 2 L of pulse irrigation. The extensor mechanism was closed with #2 FiberWire suture and #2 PDS suture. The subcutaneous tissue was then irrigated and closed deep with #1 PDS suture superficially with 0 PDS suture and skin was closed with zip tie The patient was then placed in a sterile dressing and a postoperative brace extubated and transferred to recovery room in stable condition. Anesthesia: GETA Surgeon: Bruce Jacobs Was there an claims assistant present: No Estimated blood loss (cc): 200 Condition: stable Disposition: PACU
[2018-08-17] MEDS: *HR* FentaNYL (PF) 100 MCG/2 ML VIAL IVP PRN ×4 (13:45→14:00)
[2018-08-17] MEDS ORDERED: *HR* HYDROmorphone (PF) 1 MG/ML SYRINGE IVP PRN (14:12)
[2018-08-17 14:36] LABS: Hematocrit 35.6 % (35.3-44.9); Hemoglobin 11.3 g/dL (11.5-15.4)
--- NOTE | 2018-08-17 14:49 | Anesthesia Evaluation Post Op ---
Date of Encounter: 08/17/18 Time of Encounter: 14:47 - Vital Signs Vital Signs: Vital Signs Temperature 97.9 F 08/17/18 10:01 Pulse Rate 79 08/17/18 10:01 Respiratory Rate 18 08/17/18 10:01 Blood Pressure 189/97 08/17/18 10:01 O2 Sat by Pulse Oximetry 98 08/17/18 10:01 Temperature 98.8 F 08/17/18 13:39 Pulse Rate 72 08/17/18 14:29 Respiratory Rate 14 08/17/18 14:29 Blood Pressure 99/58 08/17/18 14:29 O2 Sat by Pulse Oximetry 98 08/17/18 14:29 - Lungs Lungs: Clear Ascult./Percussion - Airway Airway: Non-obstructed - Cardiovascular Regular Rate - Mental Status Mental Status: Alert & Oriented, Answers Appropriately - Pain Pain Scale: 8 (Pt sleeping and arousable) Pain Scale used: Numeric (1 - 10) - Nausea Vomiting Nausea Vomiting: Not Present - Hydration Hydration: Tolerates oral liquids, Has not voided - Discharge PostOp Status: Transfer Patient to floor
[2018-08-17] MEDS ORDERED: Temazepam 15 MG CAPSULE PO PRN (14:56)
[2018-08-17] MEDS ORDERED: MOM Conc 10 ML UD.LIQ PO PRN (14:56)
[2018-08-17] MEDS ORDERED: Fluticasone Propionate Nasal 50 MCG/SPRAY BOTTLE NS PRN (14:56)
[2018-08-17] MEDS ORDERED: Sennosides 8.6 MG TABLET PO PRN (14:56)
[2018-08-17] MEDS ORDERED: Naloxone 0.4 MG/ML INJ IVP PRN (14:56)
[2018-08-17] MEDS ORDERED: *HR* OxyCODONE/APAP 5/325 TABLET PO PRN (14:56)
[2018-08-17] MEDS ORDERED: Ondansetron 4 MG/2 ML VIAL IVP PRN (14:56)
[2018-08-17] MEDS: *HR* Enoxaparin 30 MG/0.3 ML SYRINGE SQ SCH (20:04)
[2018-08-17] MEDS: *HR* OxyCODONE Immed Rel 5 MG TABLET PO PRN (20:19)
[2018-08-17] MEDS: Latanoprost 2.5 ML BOTTLE BOTH EYES SCH (22:24)
[2018-08-18] MEDS: *HR* OxyCODONE Immed Rel 5 MG TABLET PO PRN ×3 (02:43→14:40)
[2018-08-18 04:51] LABS: Hematocrit 25.2 % (35.3-44.9)
[2018-08-18 04:57] LABS: Hemoglobin 8.3 g/dL (11.5-15.4)
[2018-08-18 05:08] LABS: BUN/Creatinine Ratio 34 (6-26); Blood Urea Nitrogen 19 mg/dL (8-23); Carbon Dioxide 25 mEq/L (23-29); Chloride 104 mEq/L (98-107); Glucose 134 mg/dL (70-105); Osmolality,Calculated 284 (280-300); Potassium 4.4 mEq/L (3.5-5.1); Sodium 135 mEq/L (136-145); eGFR For Non-African Americans > 60 (> 60)
[2018-08-18] MEDS ORDERED: *HR* Enoxaparin 30 MG/0.3 ML SYRINGE SQ SCH (06:00)
[2018-08-18] MEDS: *HR* Enoxaparin 30 MG/0.3 ML SYRINGE SQ SCH ×2 (06:20→17:34)
--- NOTE | 2018-08-18 06:27 | Orthopedics Progress Note ---
Date of Encounter: 08/18/18 Time of Encounter: 06:27 Subjective Interval history: Patient was seen this morning doing well without complaints. Afebrile vital signs stable. Operative extremity: Neurovascularly intact Dressing clean dry and intact Calves nontender Assessment and plan: Continue with postoperative care Hemoglobin 8.3 transfuse 2 units Objective Vital signs: Vital Signs Temp Pulse Resp BP Pulse Ox 08/18/18 02:30 98.2 F 79 17 121/53 96 08/17/18 22:55 98.1 F 80 16 112/49 99 08/17/18 20:04 96 08/17/18 18:58 97.9 F 80 16 112/64 100 08/17/18 18:00 97.8 F 81 15 101/62 100 08/17/18 17:00 98.5 F 78 15 115/60 100 08/17/18 16:02 97.6 F 81 13 143/63 08/17/18 15:40 97.6 F 76 17 103/44 100 08/17/18 15:10 97 08/17/18 15:05 99 08/17/18 15:00 97.6 F 74 12 99/67 99 08/17/18 14:49 98.4 F 70 14 108/63 98 08/17/18 14:29 72 14 99/58 98 08/17/18 14:19 74 16 108/65 100 08/17/18 14:09 67 14 105/53 100 08/17/18 13:59 80 16 110/61 100 08/17/18 13:49 73 16 127/59 100 08/17/18 13:39 98.8 F 83 16 101/83 99 08/17/18 12:11 74 16 118/78 100 08/17/18 12:03 77 16 122/61 100 08/17/18 11:53 18 18 144/84 100 08/17/18 10:01 97.9 F 79 18 189/97 98 Intake and Output 08/17/18 08/17/18 08/18/18 15:59 23:59 07:59 Intake Total 100 / 100 Output Total 200 / 200 200 / 200 Balance -200 / -200 100 / 100 -200 / -200 Intake: IV Fluids 100 / 100 Ancef 2,000 MG In 0.9 % Sodium 100 / 100 Chloride 100 ML @ 200 mls/hr IVPB Q8H [facility] Rx#:[id number] Output: Urine 200 / 200 Estimated Blood Loss 200 / 200 Other: # Voids 1 1 Weight 79.379 kg - Labs CBC & BMP: 08/18/18 04:05 08/18/18 04:05 Labs: Abnormal lab results Hgb 8.3 g/dL (11.5-15.4) L D 08/18/18 04:05 Hct 25.2 % (35.3-44.9) L 08/18/18 04:05 Sodium 135 mEq/L (136-145) L 08/18/18 04:05 Creatinine 0.56 mg/dL (0.60-1.20) L 08/18/18 04:05 BUN/Creatinine Ratio 34 (6-26) H 08/18/18 04:05 Glucose 134 mg/dL (70-105) H 08/18/18 04:05 - VTE Documentation of Mechanical Device: Venous foot pump, device Consult Discharge Plan - Plan Referrals: Candi Hernandez MD [Primary Care Provider] - Prescriptions: Aspirin Enteric Coated [Aspirin EC] 325 mg PO BID #20 tablet. OxyCODONRashid Immed Rel [Roxicodone 5 MG] 5 mg PO Q6HR PRN 7 Days #28 tablet PRN Reason: Severe Pain
[2018-08-18] MEDS: Cholecalciferol (D-3) 1,000 UNIT TABLET PO SCH (10:16)
[2018-08-18] MEDS: Lisinopril-HCTZ 20-12.5mg TABLET PO SCH (10:16)
[2018-08-18] MEDS: Furosemide 20 MG/2 ML VIAL IVP SCH ×2 (10:17→20:39)
[2018-08-18] MEDS: [UNRECOGNIZED DRUG - OTHER] PO SCH (10:33)
[2018-08-18] MEDS: UBIDECARENONE 100 MG PO SCH (10:33)
[2018-08-18] MEDS ORDERED: 0.9 % Sodium Chloride 500 ML ONE (11:05)
[2018-08-18] MEDS ORDERED: 0.9 % Sodium Chloride 250 ML ONE (15:52)
[2018-08-18] MEDS: Acetaminophen 325 MG TABLET PO PRN (16:51)
[2018-08-18] MEDS: Latanoprost 2.5 ML BOTTLE BOTH EYES SCH (21:09)
[2018-08-19] MEDS: *HR* OxyCODONE Immed Rel 5 MG TABLET PO PRN ×3 (01:36→12:36)
[2018-08-19 05:58] LABS: Hematocrit 33.2 % (35.3-44.9)
[2018-08-19 05:59] LABS: Hemoglobin 11.1 g/dL (11.5-15.4)
[2018-08-19 06:25] LABS: BUN/Creatinine Ratio 35 (6-26); Blood Urea Nitrogen 23 mg/dL (8-23); Calcium 9.2 mg/dL (8.6-10.3); Carbon Dioxide 25 mEq/L (23-29); Chloride 104 mEq/L (98-107); Glucose 114 mg/dL (70-105); Osmolality,Calculated 289 (280-300); Sodium 137 mEq/L (136-145); eGFR For Non-African Americans > 60 (> 60)
[2018-08-19] MEDS: [UNRECOGNIZED DRUG - OTHER] PO SCH (06:48)
[2018-08-19] MEDS: UBIDECARENONE 100 MG PO SCH (06:48)
[2018-08-19] MEDS: *HR* Enoxaparin 30 MG/0.3 ML SYRINGE SQ SCH ×2 (06:50→16:15)
[2018-08-19] MEDS: Lisinopril-HCTZ 20-12.5mg TABLET PO SCH (06:51)
[2018-08-19] MEDS: Cholecalciferol (D-3) 1,000 UNIT TABLET PO SCH (06:51)
--- NOTE | 2018-08-19 08:03 | Orthopedics Progress Note ---
Date of Encounter: 08/19/18 Time of Encounter: 08:03 Subjective Interval history: Patient was seen this morning doing well without complaints. Afebrile vital signs stable. Operative extremity: Neurovascularly intact Dressing clean dry and intact Calves nontender Assessment and plan: Continue with postoperative care Objective Vital signs: Vital Signs Temp Pulse Resp BP Pulse Ox 08/19/18 06:47 98.3 F 86 16 175/68 97 08/18/18 23:02 97.9 F 91 16 160/67 98 08/18/18 19:09 97.9 F 97 17 108/60 97 08/18/18 18:54 98.4 F 99 16 133/67 98 08/18/18 18:47 98.4 F 99 16 131/63 08/18/18 16:18 98.2 F 98 18 159/71 99 08/18/18 16:03 98.3 F 101 18 156/65 97 08/18/18 14:53 98.3 F 101 18 156/65 08/18/18 14:48 98.0 F 93 16 130/68 99 08/18/18 11:56 98.1 F 91 16 129/57 98 08/18/18 11:41 98.1 F 90 14 115/62 Intake and Output 08/18/18 08/19/18 08/19/18 23:59 07:59 15:59 Intake Total 790 / 790 100 / 100 Output Total 200 / 200 Balance 590 / 590 100 / 100 Intake: IV Fluids 100 / 100 Ancef 2,000 MG In 0.9 % Sodium 100 / 100 Chloride 100 ML @ 200 mls/hr IVPB Q8H [facility] Rx#:[id number] Oral 440 / 440 Blood Product 350 / 350 Rbcs Leuko Poor As-1 Unit 350 / 350 [id number] Output: Urine 200 / 200 Other: Meal Dinner Percent of Meal Consumed 75% # Voids 1 Weight 80.1 kg - Labs CBC & BMP: 08/19/18 05:10 08/19/18 05:10 Labs: Abnormal lab results Hgb 11.1 g/dL (11.5-15.4) L D 08/19/18 05:10 Hct 33.2 % (35.3-44.9) L 08/19/18 05:10 BUN/Creatinine Ratio 35 (6-26) H 08/19/18 05:10 Glucose 114 mg/dL (70-105) H 08/19/18 05:10 - VTE Documentation of Mechanical Device: Venous foot pump, device Consult Discharge Plan - Plan Referrals: Candi Hernandez MD [Primary Care Provider] -
[2018-08-19] MEDS: Acetaminophen 325 MG TABLET PO PRN ×2 (09:35→16:14)
[2018-08-19] MEDS: Latanoprost 2.5 ML BOTTLE BOTH EYES SCH (20:04)
[2018-08-20] MEDS: UBIDECARENONE 100 MG PO SCH (07:38)
[2018-08-20] MEDS: [UNRECOGNIZED DRUG - OTHER] PO SCH (07:38)
[2018-08-20] MEDS: Lisinopril-HCTZ 20-12.5mg TABLET PO SCH (07:54)
[2018-08-20] MEDS: *HR* OxyCODONE Immed Rel 5 MG TABLET PO PRN ×3 (07:54→20:08)
[2018-08-20] MEDS: *HR* Enoxaparin 30 MG/0.3 ML SYRINGE SQ SCH ×2 (07:55→18:47)
[2018-08-20] MEDS: Cholecalciferol (D-3) 1,000 UNIT TABLET PO SCH (07:55)
--- NOTE | 2018-08-20 10:43 | Orthopedics Progress Note ---
Date of Encounter: 08/20/18 Time of Encounter: 07:58 - Assessment and Plan (1) Acute blood loss anemia Current Visit: No Status: Acute Subjective Interval history: Patient was seen this morning doing well without complaints. Afebrile vital signs stable. Operative extremity: Neurovascularly intact Dressing clean dry and intact Calves nontender Assessment and plan: Continue with postoperative care hb 11.1 Objective Vital signs: Vital Signs Temp Pulse Resp BP Pulse Ox 08/20/18 06:34 98.4 F 87 18 154/73 96 08/20/18 03:34 195/72 08/20/18 03:30 98.2 F 84 20 173/68 96 08/19/18 23:22 98.0 F 87 18 160/77 93 08/19/18 18:46 98.4 F 87 18 146/63 95 08/19/18 16:28 98.7 F 88 16 148/69 98 08/19/18 11:16 97.6 F 76 18 137/64 97 Intake and Output 08/19/18 08/19/18 08/20/18 15:59 23:59 07:59 Intake Total 240 / 240 600 / 600 0 / 0 Output Total 600 / 600 0 / 0 Balance -360 / -360 600 / 600 0 / 0 Intake: Oral 240 / 240 600 / 600 0 / 0 Output: Urine 600 / 600 0 / 0 Other: Meal Lunch Percent of Meal Consumed 50% # Voids 1 1 1 Weight 80.6 kg Patient Weight 08/20/18 23:59 Weight 80.6 kg - Labs CBC & BMP: 08/19/18 05:10 08/19/18 05:10 Labs: Abnormal lab results Hgb 11.1 g/dL (11.5-15.4) L D 08/19/18 05:10 Hct 33.2 % (35.3-44.9) L 08/19/18 05:10 BUN/Creatinine Ratio 35 (6-26) H 08/19/18 05:10 Glucose 114 mg/dL (70-105) H 08/19/18 05:10 - VTE Documentation of Mechanical Device: Venous foot pump, device Consult Discharge Plan - Plan Referrals: Candi Hernandez MD [Primary Care Provider] -
[2018-08-20] MEDS: Acetaminophen 325 MG TABLET PO PRN (14:13)
--- NOTE | 2018-08-20 17:41 | Event Note ---
Date of Encounter: 08/18/18 Time of Encounter: 13:00 PCR - POD#1 - Left TKR 08/17 - daron in place Patient seen at bedside, without complaints. A&O x 3 Afebrile, vital signs stable. Labs reviewed. 08/19 - Acute blood loss anemia, with symptomst - Given 2 units of blood Pain control: adequate- Added Lidoderm patch Participating in PT. All questions and concerns addressed. Educated on use of incentive spirometer. Encouraged ambulation and proper hydration. Patient educated on post-operative restrictions and post-operative care. Assessment and plan: Continue with postoperative care Discharge plan: ECF, converted to Admit today, discharge Friday
--- NOTE | 2018-08-20 17:43 | Event Note ---
Date of Encounter: 08/20/18 Time of Encounter: 17:42 PCR - POD#3 - Left TKR 08/17 - daron in place Patient seen at bedside, without complaints. A&O x 3 08/20 - no active bleeding from knee; change dressing and replace. Afebrile, vital signs stable. Labs reviewed. Stable today 08/18 - Acute blood loss anemia, with symptoms - Given 2 units of blood Pain control: adequate- Added Lidoderm patch Participating in PT. All questions and concerns addressed. Educated on use of incentive spirometer. Encouraged ambulation and proper hydration. Patient educated on post-operative restrictions and post-operative care. Assessment and plan: Continue with postoperative care Discharge plan: ECF, converted to Admit 08/18, discharge Friday Vital Signs Temp Pulse Resp BP Pulse Ox 08/20/18 14:54 98.6 F 68 16 95 08/20/18 14:08 98.4 F 63 16 141/76 94 08/20/18 11:20 98 F 78 16 147/68 95 08/20/18 06:34 98.4 F 87 18 154/73 96 08/20/18 03:34 195/72 08/20/18 03:30 98.2 F 84 20 173/68 96 08/19/18 23:22 98.0 F 87 18 160/77 93 08/19/18 18:46 98.4 F 87 18 146/63 95 Intake and Output 08/20/18 08/20/18 08/20/18 07:59 15:59 23:59 Intake Total 0 / 0 640 / 640 Output Total 600 / 600 Balance 0 / 0 40 / 40 Intake: Oral 0 / 0 640 / 640 Output: Urine 600 / 600 Other: Meal Lunch Percent of Meal Consumed 50% # Voids 1 Weight 80.6 kg Patient Weight 08/20/18 23:59 Weight 80.6 kg Abnormal Labs 08/17/18 08/18/18 08/18/18 14:09 04:05 04:05 Hgb 11.3 L D 8.3 L D Hct 25.2 L Sodium 135 L Creatinine 0.56 L BUN/Creatinine Ratio 34 H Glucose 134 H Crossmatch 08/18/18 08/19/18 08/19/18 07:03 05:10 05:10 Hgb 11.1 L D Hct 33.2 L Sodium Creatinine BUN/Creatinine Ratio 35 H Glucose 114 H Crossmatch See Detail
--- NOTE | 2018-08-20 17:48 | Physician Discharge Referral ---
ExtendedCare Referral Info Transfer To: F Provider in Charge after Transfer: PCP Institutional Level of Care: Skilled - Diagnosis (1) Status post total knee replacement, left Priority: Primary Status: Acute (2) Arthritis of knee, left Priority: Primary Status: Acute (3) Hyperlipidemia Priority: Secondary Status: Chronic (4) Hypertension Priority: Secondary Status: Chronic (5) Obesity (BMI 30.0-34.9) Priority: Secondary Status: Chronic (6) Heart murmur Priority: Secondary Status: Chronic (7) Acute blood loss anemia Priority: Secondary Status: Acute Expected Duration of Placement: < 30 days Prognosis: Good Aware of Diagnosis: Patient Aware of Prognosis: Patient - Transfer Medications Home Medications: Cholecalciferol (D-3) [Vitamin D] 10,000 unit PO WE 10/11/17 [History] Fluticasone Propionate Nasal [Flonase] 1 spr NS DAILY PRN 10/11/17 [History] Lisinopril-HCTZ 20-12.5 [Prinzide 20-12.5] 1 tab PO DAILY 10/11/17 [History] Ubidecarenone [Coq10] 100 mg PO DAILY 10/11/17 [History] Vit A/Vit C/Vit E/Zinc/Copper [Preservision Areds Tablet] 1 each PO BID 10/11/17 [History] Latanoprost [Xalatan] 1 drop OP HS 10/12/17 [History] Aspirin Enteric Coated [Aspirin EC] 325 mg PO BID #20 tablet. 08/17/18 [Rx] Fructooligosaccharides/Polydex [Fiber-Stat 15 gm/30 ml Liquid] 15 gm PO DAILY 08/17/18 [History] OxyCODONE Immed Rel [Roxicodone 5 MG] 5 mg PO Q6HR PRN 7 Days #28 tablet 08/17/18 [Rx] Cyclobenzaprine [Flexeril] 10 mg PO TID PRN tablet 08/20/18 [Rx] Docusate [Colace] 100 mg PO BID capsule 08/20/18 [Rx] Allergies/Adverse Reactions: Allergy/AdvReac Type Severity Reaction Status Date / Time Dorzolamide [From Cosopt] Allergy See Verified 08/17/18 10:32 Comments Erythromycin Base Allergy See Verified 08/17/18 10:32 Comments timolol [From Cosopt] Allergy See Verified 08/17/18 10:32 Comments tramadol Allergy Hallucinati Verified 08/17/18 10:32 ng - Respiratory Orders None Smoking Cessation: Smoking cessation has been advised. For more information, call the [place] Tobacco Quit Line at 8-100-ZTYW-NOW. - Lab Orders Lab Orders: CBC - Ancillary Orders May use pressure relief devices daily prn - Advance Directives Code Status: Full Code - Mobility Orders Ambulate - Rehabiliation Orders Rehab Potential: Good Rehab Orders: ROM Exercises, Evaluation for Physical Therapy, Evaluation for Occupational Therapy - Treatments Skin tear care topically daily PRN per policy, May check for fecal impaction rectally daily PRN, Fleet enema rectally every other day PRN cleansing purposes - Diet Orders Regular CERTIFICATION: I certify that the transfer of the above named patient to an Extended Care Facility is necessary for the continuing treatment of the diagnosis listed. The above information is true and accurate reflection of patient's current condition. Confidential - Redisclosure prohibited without a patient's written consent.
[2018-08-20] MEDS: Latanoprost 2.5 ML BOTTLE BOTH EYES SCH (20:02)
[2018-08-21] MEDS: *HR* OxyCODONE Immed Rel 5 MG TABLET PO PRN ×2 (02:41→10:44)
[2018-08-21 05:15] LABS: Hematocrit 30.7 % (35.3-44.9); Hemoglobin 9.9 g/dL (11.5-15.4)
[2018-08-21 05:32] LABS: BUN/Creatinine Ratio 37 (6-26); Blood Urea Nitrogen 18 mg/dL (8-23); Carbon Dioxide 27 mEq/L (23-29); Chloride 102 mEq/L (98-107); Glucose 118 mg/dL (70-105); Osmolality,Calculated 287 (280-300); Potassium 3.7 mEq/L (3.5-5.1); Sodium 137 mEq/L (136-145); eGFR For Non-African Americans > 60 (> 60)
[2018-08-21] MEDS: *HR* Enoxaparin 30 MG/0.3 ML SYRINGE SQ SCH (06:13)
[2018-08-21] MEDS: Acetaminophen 325 MG TABLET PO PRN (06:14)
--- NOTE | 2018-08-21 06:35 | Orthopedics Progress Note ---
Date of Encounter: 08/21/18 Time of Encounter: 06:34 - Assessment and Plan (1) Acute blood loss anemia Current Visit: No Status: Acute Subjective Interval history: Patient was seen this morning doing well without complaints. Afebrile vital signs stable. Operative extremity: Neurovascularly intact Dressing clean dry and intact Calves nontender Assessment and plan: Continue with postoperative care okay for discharge Objective Vital signs: Vital Signs Temp Pulse Resp BP Pulse Ox 08/21/18 03:57 98.2 F 80 18 148/71 92 08/20/18 23:03 98.3 F 78 17 139/66 96 08/20/18 18:40 99.1 F 84 18 122/57 95 08/20/18 14:54 98.6 F 68 16 95 08/20/18 14:08 98.4 F 63 16 141/76 94 08/20/18 11:20 98 F 78 16 147/68 95 Intake and Output 08/20/18 08/20/18 08/21/18 15:59 23:59 07:59 Intake Total 640 / 640 400 / 400 300 / 300 Output Total 950 / 950 Balance -310 / -310 400 / 400 300 / 300 Intake: Oral 640 / 640 400 / 400 300 / 300 Output: Urine 950 / 950 Other: Meal Lunch Dinner Percent of Meal Consumed 50% 60% # Voids 1 - Labs CBC & BMP: 08/21/18 04:27 08/21/18 04:27 Labs: Abnormal lab results Hgb 9.9 g/dL (11.5-15.4) L 08/21/18 04:27 Hct 30.7 % (35.3-44.9) L 08/21/18 04:27 Creatinine 0.49 mg/dL (0.60-1.20) L 08/21/18 04:27 BUN/Creatinine Ratio 37 (6-26) H 08/21/18 04:27 Glucose 118 mg/dL (70-105) H 08/21/18 04:27 - VTE Documentation of Mechanical Device: Venous foot pump, device Consult Discharge Plan - Plan Referrals: Candi Hernandez MD [Primary Care Provider] -
[2018-08-21] MEDS: UBIDECARENONE 100 MG PO SCH (08:22)
[2018-08-21] MEDS: [UNRECOGNIZED DRUG - OTHER] PO SCH (08:22)
[2018-08-21] MEDS: Cholecalciferol (D-3) 1,000 UNIT TABLET PO SCH (08:24)
[2018-08-21] MEDS: Lisinopril-HCTZ 20-12.5mg TABLET PO SCH (08:24)
[2018-08-21] MEDS ORDERED: Multivit/Ca/Min/Fe/FA 1 TAB TABLET PO SCH (09:00)
[2018-08-21 11:04] VITALS: BP 126/70
== END 2018-08-21 15:22 | DRG 470 ==
LOC: SAMDAY 09:31 → 3NENU 14:57
PROVIDERS: ADMIT Orthopaedic Surgery; ATTEND Orthopaedic Surgery